=== PATIENT | female | born 1955 | race Asian ===

== ENCOUNTER → 2018-05-13 07:29 | Outpatient (CLI) | payer OTHER, SELFPAY ==
--- NOTE | 2018-05-13 | DI.MG.S_ITS ---
BILATERAL DIGITAL SCREENING MAMMOGRAM 3D/2D WITH CAD: 05/13/2018 CLINICAL: Routine screening. Comparison is made to exams dated: 02/08/2016 mammogram, 03/20/2017 mammogram, 12/28/2014 mammogram, and 12/25/2013 mammogram - [facility]. The tissue of both breasts is extremely dense, which lowers the sensitivity of mammography. Current study was also evaluated with a Computer Aided Detection (CAD) system. No significant masses, calcifications, or other findings are seen in either breast. There has been no significant interval change. IMPRESSION: NEGATIVE There is no mammographic evidence of malignancy. A 1 year screening mammogram is recommended. This exam was interpreted at Station ID: [id number]. NOTE: For mammograms, a report in lay terms will be sent to the patient. Approximately 15% of breast malignancies will not be visualized mammographically. In the management of a palpable breast mass, a negative mammogram must not discourage biopsy of a clinically suspicious lesion. Electronically Signed By: Andrea garrett/vanna:05/13/2018 12:44:17 letter sent: Normal Exam ACR BI-RADS Category 1: Negative [id number]
== END ==
PROVIDERS: PCP Family Medicine; Visit Provider Family Medicine
DX: Z12.31 Encounter for screening mammogram for malignant neoplasm of breast (principal)
CPT/HCPCS: 77063; 77067

== ENCOUNTER → 2019-09-20 11:33 | Outpatient (CLI) | payer OTHER, SELFPAY ==
--- NOTE | 2019-09-20 11:34 | DI.MG.S_ITS ---
BILATERAL DIGITAL SCREENING MAMMOGRAM 3D/2D WITH CAD: 09/20/2019 CLINICAL: Routine screening. Comparison is made to exams dated: 05/13/2018 mammogram, 03/20/2017 mammogram, and 02/08/2016 mammogram - [facility]. The tissue of both breasts is extremely dense, which lowers the sensitivity of mammography. Current study was also evaluated with a Computer Aided Detection (CAD) system. No significant masses, calcifications, or other findings are seen in either breast. There has been no significant interval change. IMPRESSION: NEGATIVE There is no mammographic evidence of malignancy. A 1 year screening mammogram is recommended. This exam was interpreted at Station ID: [id number]. NOTE: For mammograms, a report in lay terms will be sent to the patient. Approximately 15% of breast malignancies will not be visualized mammographically. In the management of a palpable breast mass, a negative mammogram must not discourage biopsy of a clinically suspicious lesion. Electronically Signed By: Jean kirk/vanna:09/22/2019 07:57:30 letter sent: Normal Exam ACR BI-RADS Category 1: Negative [id number]
== END ==
PROVIDERS: PCP Family Medicine; Referring Provider Family Medicine; Visit Provider Family Medicine
DX: Z12.31 Encounter for screening mammogram for malignant neoplasm of breast (principal)
CPT/HCPCS: 77063; 77067

== ENCOUNTER → 2020-06-09 09:25 | Outpatient (CLI) | payer OTHER, SELFPAY ==
--- NOTE | 2020-06-09 09:26 | DI.US.S_ITS ---
ULTRASOUND OF RIGHT BREAST: 06/09/2020 CLINICAL: Palpable right breast lump. Comparison is made to exams dated: 06/09/2020 mammogram, 09/20/2019 mammogram, 05/13/2018 mammogram, and 03/20/2017 mammogram - [facility]. Color flow and real-time ultrasound of the right breast were performed. Joshi scale images of the real-time examination were reviewed. There is a 0.9 cm x 1.3 cm x 1 cm round mass in the right breast at 3 o'clock anterior depth 2 cm from the nipple. This correlates as palpated and with mammography findings. Color flow imaging demonstrates that there is increased vascularity. IMPRESSION: SUSPICIOUS OF MALIGNANCY The 1.3 cm round mass in the right breast is suspicious of malignancy. An ultrasound guided biopsy is recommended. Findings and recommendations were discussed with the patient by Dr. Beau Cervantes at time of exam. This exam was interpreted at Station ID: [id number]. Electronically Signed By: Selene kincaid/:06/09/2020 13:58:16 letter sent: Biopsy Required Ultrasound BI-RADS: 4 Suspicious for malignancy
--- NOTE | 2020-06-09 09:26 | DI.MG.S_ITS ---
BILATERAL DIGITAL DIAGNOSTIC MAMMOGRAM 3D/2D: 06/09/2020 CLINICAL: Right breast lump. Comparison is made to exams dated: 09/20/2019 mammogram, 05/13/2018 mammogram, and 03/20/2017 mammogram - [facility]. The tissue of both breasts is heterogeneously dense. This may lower the sensitivity of mammography. There is a 1.2 cm irregular equal density asymmetry with an indistinct margin in the right breast at 4 o'clock middle depth. This is seen in additional views. This has increased in size and correlates as palpated. No other significant masses, calcifications, or other findings are seen in either breast. IMPRESSION: INCOMPLETE: NEEDS ADDITIONAL IMAGING EVALUATION The 1.2 cm increasing sized asymmetry in the right breast corresponds to the palpable abnormality but remains indeterminate. An ultrasound is recommended. This was performed immediately following this exam. This exam was interpreted at Station ID: [id number]. NOTE: For mammograms, a report in lay terms will be sent to the patient. Approximately 15% of breast malignancies will not be visualized mammographically. In the management of a palpable breast mass, a negative mammogram must not discourage biopsy of a clinically suspicious lesion. Electronically Signed By: Selene kincaid/:06/09/2020 10:11:37 ACR BI-RADS Category 0: Incomplete 3340F
== END ==
PROVIDERS: PCP Family Medicine; Referring Provider Family Medicine; Visit Provider Family Medicine
DX: N63.10 Unspecified lump in the right breast, unspecified quadrant (principal)
CPT/HCPCS: 76642; 77066; G0279

== ENCOUNTER → 2020-06-23 13:06 | Outpatient (CLI) | payer OTHER, SELFPAY ==
--- NOTE | 2020-06-23 | PATH_ITS ---
[facility] Accession Number: [id number] . 01 Material submitted: . breast - RIGHT BREAST MASS 3:00 2CMFN . 01 Diagnosis: Right Breast, Mass, 3 o'clock, 2 cm From Nipple, Image-Guided Core Biopsy: Invasive ductal carcinoma with mucinous features, intermediate grade. - [place] Score: 6 out of 9 possible (histologic=3, nuclear=2, mitotic index=1). - In Situ Carcinoma: Present, ductal type with intermediate grade nuclei and solid/cribriform architecture. - Lymphovascular Invasion: Not identified. - Greatest Linear Dimension of Invasive Carcinoma: 1.0 cm, as measured from the glass slide. - Microcalcifications: Identified within tumor proper. - Predictive Markers: Estrogen and progesterone receptors and HER2 by immunohistochemistry pending (reported as an addendum). [facility] 06/25/2020 1540 Local . 01 Comment: The results of this case are verbally provided by Dr. Wilson to Nurse Marianne, in Dr. Valle's office, on 06/25/2020 at 3:30 PM. . 01 Electronically signed: . Suzy Wilson MD, Pathologist NPI- [id number] . 01 Gross description: . Received one formalin-filled container, labeled with the patient's name and labeled R breast 3 o'clock 2 cm FN. The specimen is received with a plastic filter in container, sample loose in container and consists of multiple yellow-jj to jj-lópez, cylindrical-shaped portions of tissue that range in size from 0.3 x 0.2 x 0.2 cm to 1.0 x 0.2 x 0.2 cm. The specimen is entirely submitted in one cassette. Possible collection date and time per requisition: 06/23/20 at 1452. Total fixation time: Approximately 32 hours. (DC:[id number]) /[facility] 06/25/2020 0230 Local . 01 Pathologist provided ICD-10: C50.911 . 01 CPT . 894182, [id number] Performed at: 01 [facility] [address], [place], [place] [id number] MD Miguel Angel Regalado MD Phone: [phone]
--- NOTE | 2020-06-23 | DI.MG.S_ITS ---
UNILATERAL RIGHT DIGITAL DIAGNOSTIC MAMMOGRAM POST-NEEDLE BIOPSY: 06/23/2020 CLINICAL: Right breast mass. Comparison is made to exams dated: 06/09/2020 mammogram, 09/20/2019 mammogram, and 05/13/2018 mammogram - [facility]. The tissue of right breast is heterogeneously dense. This may lower the sensitivity of mammography. The post biopsy marker, Vision marker, is in expected position. IMPRESSION: POST PROCEDURE MAMMOGRAM FOR MARKER PLACEMENT Appropriate Vision Marker positioning at margin of the lesion biopsied under US guidance today. This exam was interpreted at Station ID: [id number]. NOTE: For mammograms, a report in lay terms will be sent to the patient. Approximately 15% of breast malignancies will not be visualized mammographically. In the management of a palpable breast mass, a negative mammogram must not discourage biopsy of a clinically suspicious lesion. Electronically Signed By: Erasto Larson M.D. sdh/:06/23/2020 16:06:29 ACR BI-RADS Category Post-procedure mammogram for marker placement
--- NOTE | 2020-06-23 13:08 | DI.US.S_ITS ---
ULTRASOUND GUIDED BIOPSY RIGHT BREAST USING VACUUM DEVICE WITH MARKING DEVICE INSERTED AND POST DIGITAL MAMMOGRAPHIC AND ULTRASOUND IMAGIN06/23/2020 CLINICAL: Right breast mass. PATIENT CONSENT: Risks (minor bleeding, infection, vasovagal reaction and repeat procedure), benefits and alternatives were explained to the patient and written informed consent was obtained. Correlation is made to exams dated: 06/23/2020 mammogram, 06/09/2020 ultrasound, 06/09/2020 mammogram, 09/20/2019 mammogram, 05/13/2018 mammogram, and 03/20/2017 mammogram - [facility]. An ultrasound guided biopsy using real-time ultrasound was performed for the concerning circumscribed lobulated solid mass located in the right breast at 4 o'clock anterior depth. This was described on the previous mammography and ultrasound reports. The skin was prepped in the usual manner. Local anesthetic was administered to the access site. A skin debi was made in the breast. The abnormality was approached from the lateral aspect. A 13 gauge biopsy needle was placed adjacent to the abnormality under ultrasound guidance. Once the needle was documented to be in the correct location, four specimens were obtained using the Mammotome biopsy system. The patient received additional local anesthetic during the procedure. A mammo clip was inserted into the biopsy cavity. A skin closure strip and a sterile dressing were applied to the access site. Post procedure digital mammographic and ultrasound imaging demonstrates the location device at the targeted area and partial removal of the abnormality. The specimens were sent to the laboratory for pathological analysis. IMPRESSION: ULTRASOUND GUIDED BIOPSY MALIGNANT Ultrasound guided biopsy of the solid mass in the right breast at 4 o'clock anterior depth was successful. 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 Insitu carcinoma is also present. Pathology results are concordant with imaging findings. A surgical/oncologic consultation is recommended. Results and recommendations will be communicated to the ordering provider's office. This exam was interpreted at Station ID: [id number]. codi Benson M.D., M.D./:06/29/2020 09:00:42
--- NOTE | 2020-07-05 11:26 | ONC.MSW ---
Description: New Referral Navigation T/C Reason for Referral: Invasive Ductal Carcinoma-Right Breast Activity: Called pt to confirm that we've received her referral; assessed coping, acuity, medical status, and immediate needs. Briefly discussed the role of navigation and the ongoing availability for assistance, support, and resource referrals as needed. Pt has already had biopsy, pathology and ultrasound in EMR. She is scheduled for her breast MRI on 07/06, [facility] on 07/07. ADMIN ASST answered many questions that pt had, as well as offered supportive counseling and reassurance as she expessed high anxiety and worry in processing this new dx. No further immediate needs identified at this time, ADMIN ASST provided my direct contact info should pt have any further questions or need for support prior to her appt. time. Confirmed her consult time for 07/13 at 3:00pm, 2:40pm check-in time.
== END ==
PROVIDERS: PCP Family Medicine; Referring Provider Family Medicine; Visit Provider Family Medicine
DX: C50.311 Malignant neoplasm of lower-inner quadrant of right female breast (principal)
CPT/HCPCS: 19083; 77065

== ENCOUNTER → 2020-07-06 12:16 | Outpatient (CLI) | payer OTHER, SELFPAY ==
--- NOTE | 2020-07-06 12:17 | DI.MRI.S_ITS ---
BREAST MRI OF BOTH BREASTS: 07/06/2020 CLINICAL: Right breast DCIS. Comparison is made to exams dated: 06/23/2020 ultrasound biopsy, 06/23/2020 mammogram, 06/09/2020 ultrasound, and 06/09/2020 mammogram - [facility]. Informed consent was obtained from the patient. Axial T1 images were obtained. Bilateral background breast enhancement is minimal. TECHNIQUE: The patient was placed prone in a dedicated breast imaging coil. Precontrast axial STIR and 3D FLASH without fat saturation sequences were obtained. Both before and after bolus injection of contrast, sequential 1-minute axial 3D FLASH with fat saturation sequences for 3 time points, with subtraction images and maximum intensity projections (MIP's) generated. Delayed sagittal FLASH images with fat saturation were also obtained. Computer-aided detection, including computer algorithm analysis of MRI image data for lesion detection and characterization, pharmacokinetic analysis, with further physician review for interpretation, was performed. COMPARISON: [facility], BILATERAL SCREENING MAMMOGRAM, 02/08/2016, 10:27. [facility], BILATERAL SCREENING MAMMOGRAM, 03/20/2017, 9:28. [facility], MM SCREENING MAMMO BI, 05/13/2018, 8:00. [facility], MM SCREENING MAMMO BI, 09/20/2019, 11:40. [facility], US BREAST RT LIMITED, 06/09/2020, 9:55. [facility], MM DIAGNOSTIC MAMMO BI, 06/09/2020, 9:55. [facility], US BX BREAST PERC W VAC DEVICE, 06/23/2020, 13:54. FINDINGS: Image quality: Excellent. There is mild background parenchymal enhancement. There is extremely dense fibroglandular tissue in the bilateral breast. Right breast: There is an irregular, enhancing mass in the right breast inner aspect at approximately the 4 o'clock axis middle depth, proximally 3.0 cm from the nipple measuring approximately 1.4 cm in AP dimension (axial image 52, series 12), 1.3 cm in transverse dimension (axial image 52, series 12) and approximately 1.3 cm in craniocaudal dimension (sagittal series 78, series 18). There is a small focus of internal susceptibility artifact compatible with biopsy marker. On ultrasound, this mass measured approximately 0.9 x 1.3 x 1.0 cm. This mass is compatible with biopsy-proven malignancy. Additionally, there is mild surrounding non-mass enhancement extending medially and anteriorly from this mass for a total area of approximately 3.6 cm in AP dimension (sagittal series 67, series 18), 2.0 cm in craniocaudal dimension (sagittal series 70, series 18) and approximately 1.9 cm in transverse dimension (axial image 50, series 14). There is associated delayed phase washout enhancement kinetics within the mass. There is delayed phase progressive enhancement kinetics involving the area of non-mass enhancement surrounding the biopsied mass. No suspicious skin or nipple abnormalities. There is linear T1 hyperintensity extending a short distance from the nipple without associated enhancement. This is likely related to hemorrhagic/proteinaceous products within a duct. No other suspicious mass lesions identified. No axillary or internal mammary chain adenopathy. Left breast: No suspicious mass, architectural distortion, or non-mass enhancement. No skin or nipple abnormalities. No axillary or internal mammary chain adenopathy. Miscellaneous: Visualized portions of the upper abdomen and chest appear unremarkable. IMPRESSION: KNOWN BIOPSY PROVEN MALIGNANCY 1. Irregular, enhancing 4 o'clock mass in the middle depth of the right breast measuring 1.4 x 1.3 x 1.3 cm compatible with biopsy-proven malignancy. This measures larger than sonographic measurements of approximately 0.9 x 1.3 x 1.0 cm. There is mild non-mass enhancement extending from this mass medially and anteriorly toward the nipple measuring approximately 3.6 x 2.0 x 1.9 cm. This may be in part due to post biopsy reactive changes. However, this may also represent component of ductal carcinoma in situ as noted on pathology report. No mammographic abnormalities identified to correlate with this area of non-mass enhancement. No sonographic abnormalities were seen during diagnostic evaluation of biopsied mass. Area and size of this non-mass enhancement was in close proximity to the biopsy proven mass and no other sonographic abnormalities are identified. This finding is likely mammographically and sonographically occult. Consider further evaluation with MRI guided biopsy of the most anterior and posterior margins of the non-mass enhancement to evaluate for possible presence and extent of in-situ component. 2. No evidence for right-sided axillary or internal mammary chain adenopathy. 3. Left breast without MRI evidence for malignancy. COMMENT: The imaging literature indicates that a negative contrast breast MRI examination has a high sensitivity and a moderate specificity for detecting and excluding invasive carcinomas to a detection threshold of 3-5 mm; nonetheless, appropriate clinical and mammographic follow-up are recommended. MRI is not sensitive for detecting DCIS (ductal carcinoma in situ) and may not detect large invasive neoplasms that show only minimal enhancement such as mucinous carcinoma. If there are suspicious calcifications or clinically worrisome palpable masses, then biopsy should still be considered. Invasive neoplasms can be hidden by co-existent and benign enhancement caused by mastitis, hormone therapy effects, radiation therapy, , and recent biopsy or surgery. False positive examinations can occur in a number of circumstances, including breasts that have recently been subject to invasive procedures and those that contain atypical ductal hyperplasia, hormonally stimulated glandular tissue, fat necrosis, or radial scars. This exam was interpreted at Station ID: [id number]. Electronically Signed By: Jean Heck M.D. aty/:07/06/2020 17:52:13 ACR BI-RADS Category 6: Known biopsy proven malignancy 3346F
== END ==
PROVIDERS: PCP Family Medicine; Referring Provider Family Medicine; Visit Provider Family Medicine
DX: D05.11 Intraductal carcinoma in situ of right breast (principal)
CPT/HCPCS: 77049

== ENCOUNTER → 2020-07-26 09:45 | Outpatient (CLI) | payer OTHER, SELFPAY ==
[2020-07-26 10:57] LABS: COVID19 -Nasal RAPID Negative (Negative)
== END ==
PROVIDERS: PCP Family Medicine; Visit Provider Surgery
DX: Z20.822 Contact with and (suspected) exposure to COVID-19 (principal)
CPT/HCPCS: 87635; C9803

== ENCOUNTER 2020-07-27 06:57 | Observation (INO) | payer OTHER, SELFPAY ==
[2020-07-22 13:20] VITALS: BMI 20.1
[2020-07-27] VITALS (18 sets, daily range): BP systolic 74–159; BP diastolic 46–83; PULSE 57–69; RESP 7–16; TEMP 35.8–36.7; O2SAT 97–100; BMI 20.1
--- NOTE | 2020-07-27 | PATH_ITS ---
[facility] Accession Number: [id number] . 01 Material submitted: . PART A: breast - RIGHT BREAST PART B: lymph node - SENTINEL LYMPH NODE . 02 Diagnosis: A. Right Breast, Mastectomy: Invasive ductal carcinoma with mucinous features. Please see summary cancer data below. . B. [place] Lymph Node, Excision: One sentinel lymph node negative for metastatic carcinoma. Please see cancer summary below. . SURGICAL PATHOLOGY CANCER CASE SUMMARY . Procedure: Total mastectomy. Specimen laterality: Right. Tumor site: 3 o'clock. Tumor size; 1.5 cm. Histologic type: Invasive carcinoma of no special type (ductal) with mucinous features. Histologic grade: Glandular/tubular differentiation; Score 3. Nuclear pleomorphism: Score 2. Mitotic rate: Score 1. Overall grade: Grade 2. Tumor focality: Single focus of invasive carcinoma. Ductal carcinoma in situ: Present, positive for extensive intraductal comonent (EIC). Size of DCIS: Estimated size of DCIS is at least 24 mm. Architectural patterns: Cribriform, solid. Nuclear grade: Grade 2 (intermediate). Necrosis: Not identified. Lobular carcinoma in situ: Not identified. Tumor extension: Skin: Skin is present and uninvolved. Nipple: DCIS does not involve the nipple epidermis. Skeletal muscle: No skeletal muscle is present. . Invasive carcinoma margins; Uninvolved by invasive carcinoma. Distance from closest margin: 5 mm, posterior. Distance from other margins: Greater than 10 mm from anterior-inferior and anterior-superior margins. DCIS margins: Uninvolved by DCIS. Distance from closest margin: 1 mm, posterior. Distance from other margins: Anterior-inferior margin: 4 mm Anterior-superior margin: greater than 10 mm. . Regional lymph nodes: Uninvolved by tumor cells. Total number of lymph nodes examined: 1. Number of sentinel nodes examined: 1. . Treatment effect in the breast: No known presurgical therapy. Treatment effect in the lymph nodes: Not applicable. Lymphovascular invasion: Focaly suspicious for lymphovascular invasion (block A7). Dermal lymphovascular invasion: Not identified. . Pathologic stage classification: Primary tumor: pT1c. Regional lymph nodes: pN0(sn). . Additional pathologic findings: Biopsy site changes. Ancillary studies: Breast biomarker testing performed on previous biopsy: [id number]. Estrogen receptor: Positive, greater than 90%, strong. Progesterone receptor: Positive, greater than 90%, strong. HER2 (by IHC): Equivocal (Score 2+). HER2 (by in situ hybridization): Negative, not amplified. . Microcalcifications: Present in DCIS and in nonneoplastic tissue. . Please see comment. MRV 08/03/2020 1526 Local . 02 Comment: As part of routine software quality assurance engineer, Dr. Armstrong also reviewed block A7 and agrees with the interpretation of suspicious for lymphovascular invasion. . 02 Electronically signed: . Juliet Martinez MD, Pathologist NPI- [id number] . 01 Gross description: . A. Specimen A is received in formalin labeled right breast. Specimen: Right simple mastectomy. Weight: 165 grams. Measurement: 13.0 cm from medial to lateral x 11.0 cm from superior to inferior x 4.5 cm from anterior to posterior. Skin Ellipse: Present measuring 9.1 x 4.6 cm, lópez with blue dye present. Nipple/Areola: 2.0 x 1.6 x 1.2 cm everted nipple with a 3.5 x 3.0 cm areolar complex. Axillary Tail: Absent. Margins: The specimen is oriented with a short suture designated superior and a long suture designated lateral. The specimen is inked as follows: anterosuperior blue, anteroinferior green, posterior black, and area where the nipple was amputated by the prosector yellow. Slices: The specimen is serially sectioned from lateral to medial into fourteen slices. Lesion: There is a 1.5 x 1.4 x 1.0 cm firm lópez-white lesion located within slices 12-13 with a silver metallic balloon-shaped biopsy marker in slice 13. Distance to Margins: 0.4 cm from the posterior margin, 1.0 cm from the anteroinferior margin, 2.0 cm from the anterosuperior margin, 2.0 cm from the nearest skin margin and greater than 2.0 cm from the nipple. Other: The uninvolved breast parenchyma is composed of approximately 50 percent lópez-white fibrous tissue and 50 percent lópez-yellow adipose tissue. No additional masses or lesions are identified. . Hog Stomach Preparer sections are submitted. . A1-A2 - Nipple, serially sectioned. A3 - Slice 12, mass in relation to anteroinferior margin. A4-A5 - Slice 12, mass in relation to posterior margin. A6 - Slice 12, closest skin and anterosuperior margin. A7-A8 - Slice 13, mass in relation to posterior margin, to include biopsy site. A9 - Slice 13, mass in relation to anteroinferior margin (mass was entirely submitted). A10 - Slice 14, medial to mass, internet sales representative perpendicular section. A11 - Slice 11, lateral to mass. A12 - Nipple base. A13-A14 - Hog Stomach Preparer upper outer quadrant. A15-A16 - Hog Stomach Preparer lower outer quadrant. A17-A18 - Hog Stomach Preparer upper inner quadrant. . Formalin fixation time: 84 hours. . B. Specimen B is received in formalin labeled sentinel lymph node and consists of a 1.5 x 1.4 x 1.0 cm lymph node, which is bisected and entirely submitted in cassette B1. (EA:[id number]) /[facility] 07/30/2020 1744 Local . 02 Microscopic: . A. A small focus suspicious for lymphovascular invasion is present in block A7. Immunohistochemical stains are performed to characterize cells of interest. All control stains showed appropriate reactivity. . D2-40, p63 and myosin stains were performed; however, the area of interest is not present in the deeper levels used for staining. . Interpretation: The small focus is most consistent with the interpretation of suspicious for lymphovascular invasion, but cannot be confirmed by IHCs due to lack of material in the deeper levels. . B. An immunohistochemical stain was performed on block B1 in order to evaluate for isolated tumor cells. The control stain showed appropriate reactivity. . Results: RAMÓN: Negative. . Interpretation: No evidence of metastatic tumor cells by immunohistochemistry. . * This test was developed and its performance characteristics determined by [employer]. It has not been cleared or approved by the U.S. Food and Drug Administration. The FDA has determined that such clearance or approval is not necessary. This test is used for clinical purposes. It should not be regarded as investigational or for research. . 02 Pathologist provided ICD-10: C50.911, Z17.0 . 02 CPT . 303181, 787915, F00232, [id number] Performed at: 01 [facility] [address] [id number] MD Miguel Angel Regalado MD Phone: [phone] Performed at: 02 [facility] [address] [place] [id number] MD Juliet Martinez MD Phone: [phone]
--- NOTE | 2020-07-27 07:45 | DI.NM.S_ITS ---
PROCEDURE: NM SENTINEL NODE W IMAGING RADIOPHARMACEUTICAL: 0.5-1.0 mCi Millipore filtered Tc-99m sulfur colloid. INDICATIONS: breast cancer COMPARISON: [facility], US, US BX BREAST PERC W VAC DEVICE, 06/23/2020, 13:54. TECHNIQUE: The area around the nipple was prepped and draped in a sterile fashion. Tc-99m sulfur colloid was injected intra-dermally in the outer edge of the areola in the right breast. Images were obtained subsequently. A body contour outline was obtained. FINDINGS: There is 1 lymph node in the ipsilateral axilla, which is marked on the skin and the images for referring physician. IMPRESSION: Administration of radiotracer into the right breast periareolar region for intra-operative sentinel lymph node localization. A single identified right axillary note is seen. Dictated by: Erasto Larson M.D. on 07/27/2020 at 10:59 Approved by: Erasto Larson M.D. on 07/27/2020 at 11:00
--- NOTE | 2020-07-27 09:50 | PM.PREOP ---
Pre-operative Note Interval Note History & Physical reviewed/Exam performed by Physician: Yes Changes to H&P: No
[2020-07-27] MEDS: CEFAZOLIN 1 GM VIAL 2 GM IV (10:31)
--- NOTE | 2020-07-27 10:40 | SUR.OPER ---
Supine on padded OR bed, head on pillow, arms secured on padded arm boards at <90 degrees abduction, legs uncrossed, safety belt at thigh, tape over blanket over lower legs.
[2020-07-27] MEDS: BUPIVACAINE 0.25% (PF) VIAL 30 ML INJ (10:46)
[2020-07-27] MEDS: LACTATED RINGERS 1,000 ML 42 ML IV (11:17)
[2020-07-27] MEDS: METHYLENE BLUE 50 MG/10 ML VIAL INJ (11:19)
--- NOTE | 2020-07-27 12:12 | PM.OP.1 ---
Operative Date/Time/Diagnoses Date of procedure: 07/27/20 Time of procedure: 12:12 Pre-op diagnosis: Right breast cancer Post-op diagnosis: same Procedure & Clinicians Procedure: Right Mastectomy with sentinel lymph node biopsy Same procedure as scheduled: Yes Indications: Invasive right breast cancer clinically negative axilla Surgeon: Rex Terry Anesthesia Type: General Operative Notes Findings: [place] lymph node 10 sec count 447 node confirmed by the presence of methylene blue Specimen(s): other (Right breast, sentinel lymph node) Estimated Blood Loss (mL): 30 Procedure in detail: Patient was brought to the operating room placed supine on the table. Bilateral lower extremity compression devices were applied. She received 2 g of Ancef prior to skin incision. She was intubated with an endotracheal tube. She was then prepped and draped in sterile fashion. Time-out was performed. 2 mL of methylene blue diluted with 6 ml of normal saline injected into the periareolar tissue and massaged it into the right breast for 5 minutes. An elliptical incision around the nipple areola complex was made with the knife. The subcutaneous tissue was divided with electrocautery. Skin flaps were raised to separate the breast tissue from the skin along the subdermal plexus. The dissection was extended superior to the clavicle, medial to the sternum, inferior the the inframamary fold and lateral to the anterior border of the latisimus dorsi. Next the breast tissue was from the underlying pectoralis fascia. The breast was passed off the field marked short stitch superior long stitch lateral. Hemostasis was achieved. Using a hand held gamma probe I localized the area of increased radioactivity. The right axillary tissue was carefully dissected towards the area of maximal radioactivity via the mastectomy incision. A sentinel lymph node was identified its identity confirmed by its blue appearance, it was ligated with 3-0 silk and transected sharply. The node produced a 10 sec count of 447. Gamma probe was returned to the field there was no significant background activity. The axilla was inspected for hemostasis. The wound was copiously irrigated and homeostasis was ensured. The mastectomy was closed with 3 0 Vicryl for the subcutaneous tissue and the skin was closed with 4 0 Monocryl followed by the application of Dermabond and steri strips. Patient tolerated procedure well she emerged from anesthesia was extubated and transferred to recovery room in stable condition. Complications: none Post-operative Condition: stable Disposition: same day surgery
--- NOTE | 2020-07-27 12:30 | SUR.PHASEI ---
Pt arrived needed chin lift till 1220 for patent airway. Medicated for pain by Dr. Smith.
[2020-07-27] MEDS: OXYCODONE IR 5 MG TABLET PO (12:55)
--- NOTE | 2020-07-27 13:02 | SUR.PHASEI ---
Pt slow to wake. Pt decided she would like to stay overnight. Dr. Terry informed transfer orders written, report attempted, awaiting call back from RN. R chest dressing c/d/i. pain 05/22 medicated with oxycodone once applesauce was tolerated.
--- NOTE | 2020-07-27 14:54 | PC.NURSE ---
Received from pacu 65 y/o f s/p rt mastectomy. sleepy, minimal pain at present. Incision is steri stripped and covered with loose gauze. Has binder over top of dressing and then has an ice pack on top of that. No drainage from incision. Just taking bites to eat, not hungry. Scd's placed and instructed in call light use. Received oxy in pacu and reports she is comfortable for now. Pain minimal.
--- NOTE | 2020-07-27 15:02 | SUR.PHASEI ---
Late entry: Pt brought up to acute care, left in stable condition with MAYA Vines.
[2020-07-27] MEDS: SODIUM CHLORIDE 0.9% 1,000 ML 100 ML IV ×2 (15:50→21:53)
[2020-07-27] MEDS: ONDANSETRON 4 MG/2 ML INJ IV (15:57)
[2020-07-27] MEDS: SCOPOLAMINE 1 PATCH TOP (16:07)
[2020-07-27] MEDS: SODIUM CHLORIDE 0.9% 500 ML 1000 ML IV (16:49)
[2020-07-27 17:01] LABS: Hematocrit 31.1 % (36-46)
--- NOTE | 2020-07-27 17:58 | PC.NURSE ---
Addendum entered by Kendra Thornton R.N. 07/28/20 10:07: Patient is going to be discharged home around 1100am. Incision to r.breast wnl, steri stripped well. Patient has some swelling to area, she denies pain. Napping now. Addendum entered by Natacha Hennessy R.N. 07/27/20 18:17: dressing intact, no shadow drainage, pt wearing breast binder. this nurse agrees with [employer] and development director. Original Note: Pt A&OX4. 100% RA. pt ambulated to the bathroom, pt felt dizzy, BP 74/46, HR 56, 87/46 HR 55. pt's vitals started to go up when she was in bed, pt in supine position. Dr. Terry was notified. VTO for NS @100, zofran and sco patch for nausea. pt's BP dropped again to 84/54 notified , VTO for 500cc NS bolus and stat HCT. notified MD about HCT 31.3 result and current BP 93/52 MAP 67 HR65. per provider, call if MAP is in low 60's. VTO for reglan 10mg q6h, prn.
[2020-07-27] MEDS: METOCLOPRAMIDE 10 MG/2 ML INJ IV (20:13)
[2020-07-28 00:30] VITALS: BP 110/48; PULSE 63; RESP 18; TEMP 36.7; O2SAT 100
[2020-07-28 05:36] VITALS: BP 104/47; PULSE 64; RESP 18; TEMP 36.7; O2SAT 100
[2020-07-28] MEDS: SODIUM CHLORIDE 0.9% 1,000 ML 100 ML IV (08:09)
[2020-07-28 08:10] VITALS: BP 114/46; PULSE 67; RESP 16; TEMP 36.7; O2SAT 98
--- NOTE | 2020-07-28 11:07 | PC.NURSE ---
Patient has an incision to r.chest where breast taken off. Area is covered with steri strips and intact. She is wearing a breast binder for comfort and protection. Up to get dressed as patient is going to be discharged home. IV taken out and she has denied pain this morning. Paperwork just gone over with patient and she has been taken out to the car with her friend, will belt picker pain medication at the pharmacy when ready.
--- NOTE | 2020-07-28 11:08 | CM.DANOTE ---
Patient is a 65 year old female who was admitted on 07/27/20 for Mastectomy. Pt has [employer] INSURANCE and her PCP is Dr. Taylor Valle. EMR was reviewed. Per Surgeon, pt with normal mammogram last year but 6-8 months later found a lump that was biopsied and returned malignant. Pt has consult with Dr. Hamilton Oncologist and Dr. Terry Surgeon and decision made for Right Mastectomy with lymph node biopsy and completed her surgery yesterday. SW met bedside with pt and explained role and she confirms she lives in a condo in [place] and works at [employer] [facility] and has no local family. Pt states most of her family is still in the [facility] and also [place] and unable to fly in for assist but pt states her boss and friend are big supports to her and are available for assist if needed and plan to transport her home. Pt denies any DPOA at this time and preference is home today if stable. Pt states she feels better today than yesterday and is eager to get settled in at home for healing. Pt denies any needs at this time. Per Surgeon, pt now medically stable to d/c home today with outpt follow up. Per RN, pt has plans for friend to transport around 1100 today, no concerns at this time. Plan: Patient to d/c home today via friend POV and outpt follow up with Surgeon and likely Oncologist. No SW needs at this time. KATJA Kat Discharge Planning/Care Management Advanced directive, confirm from FAMILY Start: 07/27/20 13:43 Freq: Q24H Status: Active Protocol: Document 07/27/20 14:10 CEW (Rec: 07/27/20 14:10 CEW [id number]) Advance Directive, confirm on record Time 14:10 Person contacted patient Copy received No CM Discharge Assessment Start: 07/28/20 11:07 Freq: Status: Active Protocol: Document 07/28/20 11:07 BF (Rec: 07/28/20 11:08 [id number]) Discharge Planning Assessment Assigned Cashier Assistant KATJA Cotton DPOA/Assigned Designee Name none Advance Directives? No Advance Directives on File No History Provided By Patient,Medical Record Has Patient been admitted in last 30 No days? Prior Living Arrangements Apartment/Condo Household Members none Type of transporation used prior to Drives own vehicle admit Independent with ADL's Yes Is patient alert and oriented? Yes Caregiver for Another No Barriers to Discharge No Discharge Plan Home Transportation Arrangement friend Jenise to provide transport home Referrals Initiated None needed Whiteboard Updated in Patient Room with Yes name and ext. # of Cashier Assistant Review Status In Process Please Provide Date Initial DC 07/28/20 Assessment Was Performed Next Review Type Continued Stay Review Pre-Anesthesia Assessment Start: 07/22/20 13:20 Freq: Status: Complete Protocol: Document 07/22/20 13:20 CAB (Rec: 07/22/20 13:33 CAB [id number]) Pre-Anesthesia Assessment Patient Information Reviewed Via Chart Review Comment COVID screen @ 07/26/20? Primary Care Provider Taylor Valle Seen Specialist in Last 12 Months Yes Specialist Seen General surgeon,Oncologist Primary Language Qatari Flask Cleaner Required No Height 157.48 cm Weight 49.895 kg Body Mass Index (BMI) 20.1 Barriers to Learning None Anesthesia Review Requested No Manager Sign No Smoking Status Never smoker Pain Present Pain Reported Patient is completely paralyzed or No completely immobile Mental Status Oriented to own ability Currently Taking a Beta Cam No Anti-Coagulant Therapy No Has a Interior Painter No Cardiac Testing No Hx Pacemaker/ICD No Pacemaker Rep Required? No Urinary Catheter Present No Hx Urinary Self Catheterization No Diabetes No Patient No Lactating No Marital Status Unknown Lives With none Patient Discharge Plan Description Return Home
== END 2020-07-28 11:20 | disposition home or self-care (01) ==
LOC: AC 11:43
PROVIDERS: Surgery; Admitting Provider Surgery; PCP Family Medicine; Referring Provider Surgery; Visit Provider Surgery
PROC: 0HTT0ZZ Resection of Right Breast, Open Approach (ICD-10-PCS; CPT 19303; principal; 2020-07-27 10:15)
DX: C50.911 Malignant neoplasm of unspecified site of right female breast (principal); Z17.0 Estrogen receptor positive status [ER+]; F41.9 Anxiety disorder, unspecified
CPT/HCPCS: 19303; 38500; 78195; 82962; 85014; A9541; G0378; J0690; J1100; J1885; J2250; J2405; J2704; J2765; J3010; Q9968

== ENCOUNTER → 2020-10-20 10:39 | Outpatient (CLI) | payer OTHER, SELFPAY ==
[2020-07-27 13:33] VITALS: BMI 20.1
== END ==
PROVIDERS: PCP Family Medicine; Referring Provider Internal Medicine Hematology & Oncology; Visit Provider Internal Medicine Hematology & Oncology
DX: C50.911 Malignant neoplasm of unspecified site of right female breast (principal); M85.832 Other specified disorders of bone density and structure, left forearm; Z78.0 Asymptomatic menopausal state
CPT/HCPCS: 77080; 77081

== ENCOUNTER → 2021-01-17 08:45 | Outpatient (CLI) | payer MEDICARE, OTHER, SELFPAY ==
[2020-07-27 13:33] VITALS: BMI 20.1
[2021-01-17 11:38] LABS: COVID19 -Nasal RAPID Negative (Negative)
== END ==
PROVIDERS: PCP Family Medicine; Visit Provider Nurse Practitioner Family
DX: Z20.822 Contact with and (suspected) exposure to COVID-19 (principal)
CPT/HCPCS: 87635

== ENCOUNTER 2021-01-18 09:21 | Day surgery (SDC) | payer MEDICARE, OTHER, SELFPAY ==
[2020-07-27 13:33] VITALS: BMI 20.1
[2021-01-18 10:13] VITALS: BP 121/76; PULSE 64; RESP 15; TEMP 36.2; O2SAT 100; BMI 21.2
[2021-01-18] MEDS: CATARACT EYE COMPOUND (10 DROPS/SYRINGE) 3 DROPS EYE-OP (10:57)
[2021-01-18] MEDS: PROPARACAINE 0.5% OPHTH SOL 2 DROPS EYE-OP (10:57)
--- NOTE | 2021-01-18 11:35 | PM.PREOP ---
Pre-operative Note Interval Note History & Physical reviewed/Exam performed by Physician: Yes Changes to H&P: No
--- NOTE | 2021-01-18 11:35 | PM.OP.1 ---
Operative Date/Time/Diagnoses Pre-op diagnosis: Nuclear cataract right eye Procedure & Clinicians Procedure: Cataract Surgery Same procedure as scheduled: Yes Surgeon: Chicho Fontana Anesthesia Type: MAC +/- and Sedation Operative Notes Procedure in detail: Patient brought to the operating suite. Tetracaine drops placed in the right eye. Patient was prepped and draped in sterile manner. Wire lid speculum was placed in the eye. Betadine drops were placed on the eye. This was irrigated. Lidocaine jelly was placed on the eye. A paracentesis port was created with a side-port blade. 0.1 mL 1% preservative free lidocaine was injected into the anterior chamber. The anterior chamber was deepened with viscoelastic. 2.6 mm keratome was used to create a temporal clear corneal incision. Cystotome and Utrata forceps were used to create continuous tear capsulorrhexis. Balanced salt solution was used to hydro dissect the nucleus. The phacoemulsification handpiece was inserted and the nucleus was removed using the stop and chop technique. The irrigation aspiration handpiece was inserted and the remaining cortex was removed. Anterior chamber was deepened with viscoelastic. An Nelson DIB00 intraocular lens with a power of 25.0 was injected into the capsular bag. Irrigation aspiration handpiece was inserted and the remaining viscoelastic was removed. Incision was hydrated with balanced salt solution and found to be leak free with pressure with Weck-Micheline sponges. 0.1 mL Vigamox injected anterior chamber. 0.3 mL Kenalog 10 mg was injected subconjunctivally. Lid speculum was removed. The patient left the operating room in excellent condition. Complications: none Post-operative Condition: stable Disposition: same day surgery
== END 2021-01-18 12:30 | disposition home or self-care (01) ==
PROVIDERS: PCP Family Medicine; Referring Provider Ophthalmology; Visit Provider Ophthalmology
PROC: (CPT 66984; principal; 2021-01-18 11:15)
DX: H25.11 Age-related nuclear cataract, right eye (principal); F32.9 Major depressive disorder, single episode, unspecified; K21.9 Gastro-esophageal reflux disease without esophagitis
CPT/HCPCS: 66984; J0171; J2250; J3301

== ENCOUNTER → 2021-01-24 08:22 | Outpatient (CLI) | payer MEDICARE, OTHER, SELFPAY ==
[2020-07-27 13:33] VITALS: BMI 20.1
[2021-01-24 12:33] LABS: COVID19 -Nasal RAPID Negative (Negative)
== END ==
PROVIDERS: PCP Family Medicine; Visit Provider Nurse Practitioner Family
DX: Z20.822 Contact with and (suspected) exposure to COVID-19 (principal)
CPT/HCPCS: 87635

== ENCOUNTER 2021-01-25 06:49 | Day surgery (SDC) | payer MEDICARE, OTHER, SELFPAY ==
[2020-07-27 13:33] VITALS: BMI 20.1
[2021-01-25] MEDS: PROPARACAINE 0.5% OPHTH SOL 2 DROPS EYE-OP (07:00)
[2021-01-25] MEDS: CATARACT EYE COMPOUND (10 DROPS/SYRINGE) 3 DROPS EYE-OP (07:00)
[2021-01-25 07:36] VITALS: BP 128/78; PULSE 64; RESP 18; TEMP 36.8; O2SAT 100; BMI 21.2
--- NOTE | 2021-01-25 08:15 | SUR.PREOP ---
pre-op drops given in left eye 0700, 0705, 0710.
--- NOTE | 2021-01-25 08:33 | PM.PREOP ---
Pre-operative Note Interval Note History & Physical reviewed/Exam performed by Physician: Yes Changes to H&P: No
--- NOTE | 2021-01-25 08:33 | PM.OP.1 ---
Operative Date/Time/Diagnoses Pre-op diagnosis: Nuclear Cataract Left eye Post-op diagnosis: same Procedure & Clinicians Same procedure as scheduled: Yes Surgeon: Chicho Fontana Anesthesia Type: MAC +/- and Sedation Operative Notes Procedure in detail: Patient brought to the operating suite. Tetracaine drops placed in the left eye. Patient was prepped and draped in sterile manner. Wire lid speculum was placed in the eye. Betadine drops were placed on the eye. This was irrigated. Lidocaine jelly was placed on the eye. A paracentesis port was created with a side-port blade. 0.1 mL 1% preservative free lidocaine was injected into the anterior chamber. The anterior chamber was deepened with viscoelastic. 2.6 mm keratome was used to create a temporal clear corneal incision. Cystotome and Utrata forceps were used to create continuous tear capsulorrhexis. Balanced salt solution was used to hydro dissect the nucleus. The phacoemulsification handpiece was inserted and the nucleus was removed using the stop and chop technique. The irrigation aspiration handpiece was inserted and the remaining cortex was removed. Anterior chamber was deepened with viscoelastic. An Nelson DIB00 intraocular lens with a power of 25.0 was injected into the capsular bag. Irrigation aspiration handpiece was inserted and the remaining viscoelastic was removed. Incision was hydrated with balanced salt solution and found to be leak free with pressure with Weck-Micheline sponges. 0.1 mL Vigamox injected anterior chamber. 0.3 mL Kenalog 10 mg was injected subconjunctivally. Lid speculum was removed. The patient left the operating room in excellent condition. Complications: none Post-operative Condition: stable Disposition: same day surgery
[2021-01-25] MEDS: HYALURONATE SODIUM 30 MG-10 MG/ML SYRINGES 1 BOX INTRAOCULA (08:49)
[2021-01-25] MEDS: MOXIFLOXACIN INJ 4 MG/0.8 ML VIAL 0.5 MG EYE-OP (08:49)
[2021-01-25] MEDS: PHENYLEPHRINE/LIDOCAINE VIAL (OR) 0.2 ML EYE-OP (08:49)
[2021-01-25] MEDS: TETRACAINE 0.5% OPHTH DROPS 4 ML 2 DROPS EYE-OP (08:50)
[2021-01-25] MEDS: TRIAMCINOLONE 50 MG/5 ML VIAL INJ (08:50)
[2021-01-25] MEDS: BALANCED SALT IRRIG SOLN NO.2 500 ML, EPINEPHrine 1 MG IRR (08:50)
[2021-01-25] MEDS: LIDOCAINE 2% (GLYDO) 6 ML GEL TOP (08:50)
[2021-01-25 09:06] VITALS: BP 119/77; PULSE 62; RESP 16; TEMP 36.6; O2SAT 98
== END 2021-01-25 09:11 | disposition home or self-care (01) ==
PROVIDERS: PCP Family Medicine; Referring Provider Ophthalmology; Visit Provider Ophthalmology
PROC: (CPT 66984; principal; 2021-01-25 08:45)
DX: H25.12 Age-related nuclear cataract, left eye (principal); F41.9 Anxiety disorder, unspecified
CPT/HCPCS: 66984; J0171; J2250; J3301

== ENCOUNTER → 2021-07-05 08:49 | Outpatient (CLI) | payer MEDICARE, SELFPAY ==
[2020-07-27 13:33] VITALS: BMI 20.1
--- NOTE | 2021-07-05 08:51 | DI.MG.S_ITS ---
UNILATERAL LEFT DIGITAL DIAGNOSTIC MAMMOGRAM 3D/2D - RIGHT BREAST POST MASTECTOMY: 07/05/2021 CLINICAL: Routine screening left. Hx of right mastectomy. Comparison is made to exams dated: 07/06/2020 breast MRI, 06/23/2020 mammogram, 06/09/2020 mammogram, 06/09/2020 ultrasound, and 09/20/2019 mammogram - . The tissue of left breast is heterogeneously dense. This may lower the sensitivity of mammography. No significant masses, calcifications, or other findings are seen in the breast. Left mammograms are stable. IMPRESSION: NEGATIVE There is no mammographic evidence of malignancy. Return to annual mammogram screening schedule is recommended. Findings and recommendations were conveyed to the patient at time of exam. This exam was interpreted at Station ID: [id number]. NOTE: For mammograms, a report in lay terms will be sent to the patient. Approximately 15% of breast malignancies will not be visualized mammographically. In the management of a palpable breast mass, a negative mammogram must not discourage biopsy of a clinically suspicious lesion. Electronically Signed By: Selene kincaid/:07/05/2021 09:18:36 Entry: - 07/06/2021 09:59:06 letter sent: Normal Exam ACR BI-RADS Category 1: Negative 3341F
== END ==
PROVIDERS: PCP Family Medicine; Referring Provider Internal Medicine Hematology & Oncology; Visit Provider Internal Medicine Hematology & Oncology
DX: C50.311 Malignant neoplasm of lower-inner quadrant of right female breast; Z17.0 Estrogen receptor positive status [ER+]; Z12.31 Encounter for screening mammogram for malignant neoplasm of breast; Z90.11 Acquired absence of right breast and nipple
CPT/HCPCS: 77065; G0279

== ENCOUNTER → 2021-08-02 09:17 | Outpatient (CLI) | payer MEDICARE, SELFPAY ==
[2020-07-27 13:33] VITALS: BMI 20.1
--- NOTE | 2021-08-02 09:19 | DI.MRI.S_ITS ---
PROCEDURE: MR HEAD/BRAIN WO/W CON INDICATIONS: breast cancer, now with dizziness, headache and nausea TECHNIQUE: Noncontrast axial T1 spin echo, axial T2 fast spin echo, sagittal and axial FLAIR, coronal T2 fast spin echo, axial gradient echo, axial diffusion and ADC through the brain. After the administration of contrast, axial and coronal and sagittal T1 spin echo with fat saturation through the brain. COMPARISON: None. FINDINGS: Image quality: Excellent. CSF spaces: Basal cisterns are patent. No extra-axial fluid collections. Ventricles are normal in size and shape. Brain: No midline shift. No intracranial bleeds or masses. No abnormal intracranial enhancement. There is cerebral volume loss for age. There is periventricular white matter chronic small vessel ischemic change. The brainstem appears normal. Diffusion-weighted images demonstrate no acute ischemic insults. No chronic ischemic insults. Normal intravascular flow voids are present. Skull and face: Calvarial marrow is normal in signal. Orbits appear normal. Sinuses: Sinuses and mastoids appear clear. IMPRESSION: No evidence of intracranial metastatic disease or other acute intracranial abnormality. Mild global cerebral volume loss and chronic microvascular ischemic changes present. Dictated by: Gulshan Carranza M.D. on 08/02/2021 at 10:56 Approved by: Gulshan Carranza M.D. on 08/02/2021 at 10:57
== END ==
PROVIDERS: PCP Family Medicine; Referring Provider Internal Medicine Hematology & Oncology; Visit Provider Internal Medicine Hematology & Oncology
DX: R42 Dizziness and giddiness (principal); C50.911 Malignant neoplasm of unspecified site of right female breast; R51.9 Headache, unspecified; R11.0 Nausea
CPT/HCPCS: 70553

== ENCOUNTER → 2021-12-01 07:07 | Outpatient (CLI) | payer MEDICARE, SELFPAY ==
[2020-07-27 13:33] VITALS: BMI 20.1
[2021-12-01 08:50] LABS: Add Manual Diff / Slide Review NO; Basophils Absolute Auto 0 /uL (0-100); Basophils Percent Auto 0.6 % (0-2); Eosinophils Absolute Auto 0 /uL (0-450); Eosinophils Percent Auto 0.7 % (2-4); Hemoglobin 13.3 g/dL (12.0-16.0); Lymphocytes Absolute Auto 600 /uL (1100-4500); Lymphocytes Percent Auto 8.5 % (25-40); Mean Corpuscular HGB Conc 33.3 % (30-36); Mean Corpuscular Hemoglobin 29.3 PG (26-34); Mean Corpuscular Volume 88.1 fL (80-100); Monocytes Absolute Auto 400 /uL (0-900); Monocytes Percent Auto 5.5 % (3-14); Neutrophils Absolute Auto 5800 /uL (1500-7000); Neutrophils Percent Auto 84.7 % (50-75); Platelet Count 218 X10^3/uL (150-400); Red Blood Cell Count 4.54 X10^6/uL (4.0-5.2); White Blood Cell Count 6.9 X10^3/uL (4.5-11.0)
[2021-12-01 09:11] LABS: Alanine Aminotransferase 19 IU/L (<35); Albumin 4.3 g/dL (3.5-5.0); Albumin Globulin Ratio 1.5 (1.0-2.8); Alkaline Phosphatase 67 U/L (38-126); Aspartate Aminotransferase 26 IU/L (14-36); BUN Creatinine Ratio 24.6 (6-22); Bilirubin Total 0.7 mg/dL (0.2-1.3); Blood Urea Nitrogen 15 mg/dL (7-17); Calcium 8.6 mg/dL (8.4-10.2); Carbon Dioxide 27 mmol/L (22-32); Chloride 102 mmol/L (98-107); Cholesterol 189 mg/dL (140-199); Estimated Glomerular Filt Rate > 60 mL/min (>60); Globulin 2.9 g/dL (1.7-4.1); Glucose 97 mg/dL (80-110); HDL Cholesterol 67 mg/dL (40-60); HEMOLYSIS < 15 (0-50); LDL Cholesterol Calculated 98 mg/dL (<100); Potassium 4.1 mmol/L (3.4-5.1); Sodium 139 mmol/L (137-145); Total Protein 7.2 g/dL (6.3-8.2); Triglycerides 119 mg/dL (35-150)
== END ==
PROVIDERS: PCP Family Medicine; Referring Provider Family Medicine; Visit Provider Family Medicine
DX: C80.1 Malignant (primary) neoplasm, unspecified (principal); Z13.220 Encounter for screening for lipoid disorders; C50.911 Malignant neoplasm of unspecified site of right female breast; I10 Essential (primary) hypertension
CPT/HCPCS: 36415; 80053; 80061; 85025

== ENCOUNTER → 2022-06-09 08:43 | Outpatient (CLI) | payer MEDICARE, SELFPAY ==
[2020-07-27 13:33] VITALS: BMI 20.1
--- NOTE | 2022-06-09 08:44 | DI.MG.S_ITS ---
UNILATERAL LEFT DIGITAL DIAGNOSTIC MAMMOGRAM 3D/2D: 06/09/2022 CLINICAL: Intermittent pain in left breast. Hx of Right breast cancer and mastectomy. Comparison is made to exams dated: 07/05/2021 mammogram, 07/06/2020 breast MRI, 06/09/2020 mammogram, 09/20/2019 mammogram, and 05/13/2018 mammogram - [facility]. The left breast is heterogeneously dense, which may obscure small masses (category c / 51-75% glandular tissue). No significant masses, calcifications, or other findings are seen in the breast. IMPRESSION: NEGATIVE There is no mammographic abnormality seen in the left breast to correspond with the diffuse, intermittent pain, however, clinical followup is recommended. There is no mammographic evidence of malignancy. A 1 year screening mammogram is recommended. This exam was interpreted at Station ID: [id number]. NOTE: For mammograms, a report in lay terms will be sent to the patient. Approximately 15% of breast malignancies will not be visualized mammographically. In the management of a palpable breast mass, a negative mammogram must not discourage biopsy of a clinically suspicious lesion. Electronically Signed By: Allison juarez/:06/09/2022 12:21:42 Entry: - 06/09/2022 12:21:42 letter sent: Clinical Evaluation ACR BI-RADS Category 1: Negative 3341F
== END ==
PROVIDERS: PCP Family Medicine; Referring Provider Internal Medicine Hematology & Oncology; Visit Provider Internal Medicine Hematology & Oncology
DX: Z17.0 Estrogen receptor positive status [ER+]; C50.311 Malignant neoplasm of lower-inner quadrant of right female breast; N64.4 Mastodynia
CPT/HCPCS: 77065; G0279

== ENCOUNTER → 2022-07-17 17:10 | Outpatient (CLI) | payer MEDICARE, SELFPAY ==
[2020-07-27 13:33] VITALS: BMI 20.1
[2022-07-17 18:39] LABS: Add Manual Diff / Slide Review NO; Basophils Absolute Auto 0 /uL (0-100); Basophils Percent Auto 0.4 % (0-2); Eosinophils Absolute Auto 200 /uL (0-450); Eosinophils Percent Auto 2.5 % (2-4); Hematocrit 42.9 % (36-46); Hemoglobin 14.2 g/dL (12.0-16.0); Lymphocytes Absolute Auto 2300 /uL (1100-4500); Lymphocytes Percent Auto 35.4 % (25-40); Mean Corpuscular HGB Conc 33.1 % (30-36); Mean Corpuscular Hemoglobin 29.9 PG (26-34); Mean Corpuscular Volume 90.2 fL (80-100); Monocytes Absolute Auto 400 /uL (0-900); Monocytes Percent Auto 6.8 % (3-14); Neutrophils Absolute Auto 3500 /uL (1500-7000); Neutrophils Percent Auto 54.9 % (50-75); Platelet Count 251 X10^3/uL (150-400); Red Blood Cell Count 4.76 X10^6/uL (4.0-5.2); White Blood Cell Count 6.5 X10^3/uL (4.5-11.0)
[2022-07-17 19:09] LABS: Alanine Aminotransferase 30 IU/L (<35); Albumin 4.8 g/dL (3.5-5.0); Albumin Globulin Ratio 1.5 (1.0-2.8); Alkaline Phosphatase 70 U/L (38-126); Aspartate Aminotransferase 40 IU/L (14-36); BUN Creatinine Ratio 16.2 (6-22); Bilirubin Total 0.5 mg/dL (0.2-1.3); Blood Urea Nitrogen 11 mg/dL (7-17); Calcium 9.1 mg/dL (8.4-10.2); Carbon Dioxide 31 mmol/L (22-32); Chloride 98 mmol/L (98-107); Estimated Glomerular Filt Rate > 60 mL/min (>60); Globulin 3.2 g/dL (1.7-4.1); Glucose 85 mg/dL (80-110); HEMOLYSIS < 15 (0-50); Lipase 143 U/L (23-300); Potassium 3.9 mmol/L (3.4-5.1); Sodium 137 mmol/L (137-145)
[2022-07-17 19:13] LABS: High Sensitivity CRP - Cardiac 1.4 mg/L (1.0-3.0)
== END ==
PROVIDERS: PCP Family Medicine; Referring Provider Family Medicine; Visit Provider Family Medicine
DX: E78.5 Hyperlipidemia, unspecified (principal); R10.9 Unspecified abdominal pain; R11.2 Nausea with vomiting, unspecified
CPT/HCPCS: 36415; 80053; 83690; 85025; 86140

== ENCOUNTER → 2023-06-18 07:39 | Outpatient (CLI) | payer MEDICARE, SELFPAY ==
[2020-07-27 13:33] VITALS: BMI 20.1
--- NOTE | 2023-06-18 07:41 | DI.MG.S_ITS ---
UNILATERAL LEFT DIGITAL SCREENING MAMMOGRAM 3D/2D WITH CAD: 06/18/2023 CLINICAL: Routine screening. Personal history of right breast cancer. Comparison is made to exams dated: 06/09/2022 mammogram, 07/05/2021 mammogram, and 06/09/2020 mammogram - [facility]. The left breast is heterogeneously dense, which may obscure small masses (category c / 51-75% glandular tissue). Current study was also evaluated with a Computer Aided Detection (CAD) system. No significant masses, calcifications, or other findings are seen in the breast. There has been no significant interval change. IMPRESSION: NEGATIVE There is no mammographic evidence of malignancy. A 1 year screening mammogram is recommended. This exam was interpreted at Station ID: [id number]. NOTE: For mammograms, a report in lay terms will be sent to the patient. Approximately 15% of breast malignancies will not be visualized mammographically. In the management of a palpable breast mass, a negative mammogram must not discourage biopsy of a clinically suspicious lesion. Electronically Signed By: Selene kincaid/vanna:06/18/2023 17:05:47 letter sent: Normal Exam ACR BI-RADS Category 1: Negative 3341F
== END ==
PROVIDERS: PCP Family Medicine; Referring Provider Internal Medicine Hematology & Oncology; Visit Provider Internal Medicine Hematology & Oncology
DX: Z12.31 Encounter for screening mammogram for malignant neoplasm of breast (principal); Z85.3 Personal history of malignant neoplasm of breast; R92.332 Mammographic heterogeneous density, left breast
CPT/HCPCS: 77063; 77067

== ENCOUNTER → 2023-12-07 09:05 | Outpatient (CLI) | payer MEDICARE, SELFPAY ==
[2020-07-27 13:33] VITALS: BMI 20.1
[2023-12-07 10:34] LABS: Cholesterol 222 mg/dL (140-199); HDL Cholesterol 85 mg/dL (40-60); LDL Cholesterol Calculated 116 mg/dL (<100); Triglycerides 104 mg/dL (35-150)
[2023-12-07 10:58] LABS: High Sensitivity CRP - Cardiac 1.5 mg/L (1.0-3.0)
== END ==
LOC: LAB 09:06
PROVIDERS: PCP Family Medicine; Referring Provider Family Medicine; Visit Provider Family Medicine
DX: E78.5 Hyperlipidemia, unspecified (principal)
CPT/HCPCS: 36415; 80061; 86140

== ENCOUNTER → 2023-12-07 14:48 | Outpatient (CLI) | payer MEDICARE, SELFPAY ==
[2020-07-27 13:33] VITALS: BMI 20.1
--- NOTE | 2023-12-07 14:50 | DI.RAD.S_ITS ---
PROCEDURE: XR DEXA AXIAL SKELETON INDICATIONS: bone density screening COMPARISON: [facility], CR, XR DEXA AXIAL SKELETON, 10/20/2020, 11:05. FINDINGS: Lumbar Spine: Bone mineral density 0.845 g/cm2, T score -1.8, statistically significant decreased compared to prior by 10.2%. Left Hip: Bone mineral density 0.840 g/cm2, T score -0.8, statistically significant decreased compared to prior by 3.3%. Left Femoral Neck: Bone mineral density 0.716 g/cm2, T score -1.2. Right Hip: Bone mineral density 0.807 g/cm2, T score -1.1, no statistically significant change. Right Femoral Neck: Bone mineral density 0.713 g/cm2, T score -1.2. Fracture Risk Calculation (when applicable): 10-year fracture risk of a major osteoporotic fracture 4.4 percent and of a hip fracture 0.5 percent. (T score greater or equal to -1.0 to: NORMAL) (T score from -1.1 to -2.4: OSTEOPENIA) (T score less than or equal to -2.5: OSTEOPOROSIS) IMPRESSION: Low bone mineral density (osteopenia) by WHO classification. Follow-up guidelines as follows: Osteoporosis: Consider a repeat DEXA and Vertebral Fracture Assessment (VFA) exam in 2 years or sooner if medically necessary, to reassess this patient's status. Osteopenia: Consider a repeat DEXA in 2-3 years to reassess this patient's status, or if there is a new clinical indication. Normal: Consider a repeat DEXA in 5 years or sooner, or if there is a new clinical indication. All treatment decisions require clinical judgment and consideration of individual patient factors, including patient preferences, comorbidities, previous drug use, risk factors not captured in the FRAX model (e.g., frailty, falls, vitamin D deficiency, increased bone turnover, interval significant decline in bone density ) and possible under- or over-estimation of fracture risk by FRAX. In addition, the NOF Guide recommends that FDA-approved medical therapies be considered in postmenopausal women and men age >= 50 years with a: * Hip or vertebral (clinical or morphometric) fracture * T-score of <=-2.5 at the spine or hip * Ten-year fracture probability by FRAX of >= 3% for hip fracture or >=20% for major osteoporotic fracture. People with diagnosed cases of osteoporosis or at high risk for fracture should have regular bone mineral density tests. For patients eligible for Medicare, routine testing is allowed once every 2 years. The testing frequency can be increased to one year for patients who have rapidly progressing disease, those who are receiving or discontinuing medical therapy to restore bone mass, or have additional risk factors. Dictated by: Audie Pappas M.D. on 12/07/2023 at 16:32 Approved by: Audie Pappas M.D. on 12/07/2023 at 16:34
== END ==
LOC: RAD 14:49
PROVIDERS: PCP Family Medicine; Referring Provider Family Medicine; Visit Provider Family Medicine
DX: M85.89 Other specified disorders of bone density and structure, multiple sites (principal); E78.5 Hyperlipidemia, unspecified
CPT/HCPCS: 36415; 77080; 80061; 86140

== ENCOUNTER 2024-01-23 16:06 | Outpatient (RCR) | payer MEDICARE, SELFPAY ==
[2020-07-27 13:33] VITALS: BMI 20.1
--- NOTE | 2024-01-23 17:00 | PT.OPPOC ---
Physical, Occupational & Speech Therapy At [facility] Current Diagnoses Arthropathy, unspecified (01/23/24) Pain in right shoulder (01/23/24) Visit Care Team Role Provider Type Delmis Caldera DO Attending Provider Physician Family Provider Primary Care Provider Referring Provider Specialty: Medical Address: [address] [place] [address], [address], [place], [address] Email: [email or web address] Plan Of Care PT-OP-B Current Condition Start: 01/23/24 16:41 Freq: Status: Active Protocol: Document 01/23/24 16:15 DCW (Rec: 01/23/24 16:54 DCW [id number]) Current Condition History of Current Condition Current Complaints Prior R shoulder pain History of Current Condition Pt is a 69 year old female presenting with a recent history of right shoulder pain . Pt reports that she was experiencing some increased right shoulder pain along her upper trap. No longer gives her much pain, not restricted with any motion. 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 Did have surgery in 2020 secondary to breast cancer, but afterward was able to get right back to work with no limitations, does not believe there were any compensatory movements through her shoulder at that time. Overall would like some stretches for home. PT-OP-T Assessment and Plan Start: 01/23/24 16:41 Freq: Status: Active Protocol: Document 01/23/24 16:15 DCW (Rec: 01/24/24 09:36 DCW [id number]) Physical Therapy Assessment Evaluation Complexity Number of Personal Factors/Comorbidities 1-2 Number of Body Systems Impaired 1-2 Clinical Presentation at Evaluation Stable Assessment Summary Assessment Pt presents with a largely negative initial evaluation. Per pt, she has pretty much recovered back to baseline since her initial complaint of shoulder pain. Some minor upper trap tightness, but no functional limitations, no complaints, no immobility. Good UE strength, R=L. Pt provided with some upper trap and scalene stretches for home , but will be unlikely to benefit from further therapeutic intervention. Pt will be discharged from skilled therapy at this time. Physical Therapy Plan Frequency and Duration Frequency of Treatment 1x/Week Plan of Care Start Date 12/11/24 Plan of Care End Date 01/24/24 Discharge Physical Therapy Discharge Comments No further skilled therapy indicated at this time. Plan of Care Dates Plan of Care Start Date 01/23/24 Plan of Care End Date 01/24/24 Electronically Signed by: Ceferino Salazar, PT 01/24/24 0937 If you are in agreement with this Plan of Care, please return a signed and dated copy. I have reviewed this Plan of Care and certify that the skilled therapy services above are required to meet the patient?s needs. Physician Signature Date Printed Name and Credentials Clinical Instructor Signature Printed Name and Credentials
--- NOTE | 2024-01-23 17:00 | PT.OIE ---
Current Diagnoses Arthropathy, unspecified (01/23/24) Pain in right shoulder (01/23/24) Past Medical History (Last Updated 11/27/22 @ 08:30 by Delmis Caldera DO) Anxiety Endometriosis GERD (gastroesophageal reflux disease) Invasive ductal carcinoma of right breast Nephrolithiasis Peptic ulcer Tubo-ovarian abscess (~2000) Past Surgical History (Last Reviewed 09/17/20 @ 12:54 by Rex Terry MD) H/O laparoscopy (~08/2006) History of abdominal supracervical subtotal hysterectomy (~01/2003) History of esophagogastroduodenoscopy (EGD) (~05/2007) History of esophagogastroduodenoscopy (EGD) (~03/2009) History of laparotomy (~2000) Visit Care Team Role Provider Type Delmis Caldera DO Attending Provider Physician Family Provider Primary Care Provider Referring Provider Specialty: Medical Address: [address] [place] [address], [address], [place], [facility] Email: [email or web address] Physical Therapy Initial Evaluation PT-OP-A Visit Information Start: 01/23/24 16:41 Freq: Status: Active Protocol: Document 01/23/24 16:15 DCW (Rec: 01/23/24 16:54 [facility] [id number]) Out-Patient Physical Therapy Visit Information Visit Information Visit Type Initial Evaluation Visit Start Time 16:15 Visit Stop Time 16:40 Visit Number 1 Number of RESIN COATER Visits 0 Evaluation Information Evaluation Date 01/23/24 PT-OP-B Current Condition Start: 01/23/24 16:41 Freq: Status: Active Protocol: Document 01/23/24 16:15 DCW (Rec: 01/23/24 16:54 [facility] [id number]) Current Condition History of Current Condition Current Complaints Prior R shoulder pain History of Current Condition Pt is a 69 year old female presenting with a recent history of right shoulder pain . Pt reports that she was experiencing some increased right shoulder pain along her upper trap. No longer gives her much pain, not restricted with any motion. 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 Did have surgery in 2020 secondary to breast cancer, but afterward was able to get right back to work with no limitations, does not believe there were any compensatory movements through her shoulder at that time. Overall would like some stretches for home. PT-OP-C Subjective Start: 01/23/24 16:41 Freq: Status: Active Protocol: Document 01/23/24 16:15 DCW (Rec: 01/23/24 16:54 DCW [id number]) OP-PT Subjective Patient Comments Patient Comments It was worse when I saw my PCP, but it's pretty much fine now. Patient Reported Progress Improving Patient Questionnaires Quick Dash- Upper Extremity Quick Dash UE Score 10% Quick Dash UE Impairment 1 to 19% Impaired (Score 1-19) PT-OP-F Manual Assessment Start: 01/23/24 16:41 Freq: Status: Active Protocol: Document 01/23/24 16:15 DCW (Rec: 01/23/24 16:54 DCW [id number]) Manual Assessments Soft Tissue Assessment Soft Tissue Mobility Assessment Mild right upper trap tone PT-OP-K Range of Motion Start: 01/23/24 16:41 Freq: Status: Active Protocol: Document 01/23/24 16:15 DCW (Rec: 01/23/24 16:54 DCW [id number]) Shoulder Goniometric Range of Motion Shoulder Right Active Shoulder ROM WFL Yes Testing Position Sitting Flexion 180 Abduction 180 External Rotation at 0 degrees Abduction 80 Left Active Shoulder ROM WFL Yes Testing Position Sitting Flexion 180 Abduction 180 External Rotation at 0 degrees Abduction 80 PT-OP-L Special Tests Start: 01/23/24 16:41 Freq: Status: Active Protocol: Document 01/23/24 16:15 DCW (Rec: 01/23/24 16:54 DCW [id number]) Special Tests Shoulder Special Tests Passive ER Rotator Cuff Test Results Negative Lift-Off Rotator Cuff Test Results Negative Michelle Boris Impingement Test Results Negative Grind Labrum Test Results Negative Empty Can Test Results Negative Drop Arm Rotator Cuff Test Results Negative Clunk Test Test Results Negative Belly Press Test Results Negative Apprehension Test Test Results Negative PT-OP-M Strength Start: 01/23/24 16:41 Freq: Status: Active Protocol: Document 01/23/24 16:15 DCW (Rec: 01/23/24 16:54 DCW [id number]) Shoulder Strength Shoulder Manual Muscle Testing Right Flexion 4+ Good+ Abduction (C5) 4+ Good+ External Rotation 4+ Good+ Internal Rotation 4+ Good+ Left Flexion 4+ Good+ Abduction (C5) 4+ Good+ External Rotation 4+ Good+ Internal Rotation 4+ Good+ PT-OP-Q Treatments Start: 01/23/24 16:41 Freq: Status: Active Protocol: Document 01/23/24 16:15 DCW (Rec: 01/23/24 16:54 DCW [id number]) Therapeutic Exercises Sitting Exercises SCM Sitting Exercise Name SCM stretch Side right Scalenes Sitting Exercise Name Scalene Side right Upper Trap Sitting Exercise Name Upper trap stretch Side right PT-OP-T Assessment and Plan Start: 01/23/24 16:41 Freq: Status: Active Protocol: Document 01/23/24 16:15 DCW (Rec: 01/24/24 09:36 DCW [id number]) Physical Therapy Assessment Evaluation Complexity Number of Personal Factors/Comorbidities 1-2 Number of Body Systems Impaired 1-2 Clinical Presentation at Evaluation Stable Assessment Summary Assessment Pt presents with a largely negative initial evaluation. Per pt, she has pretty much recovered back to baseline since her initial complaint of shoulder pain. Some minor upper trap tightness, but no functional limitations, no complaints, no immobility. Good UE strength, R=L. Pt provided with some upper trap and scalene stretches for home , but will be unlikely to benefit from further therapeutic intervention. Pt will be discharged from skilled therapy at this time. Physical Therapy Plan Frequency and Duration Frequency of Treatment 1x/Week Plan of Care Start Date 01/23/24 Plan of Care End Date 01/24/24 Discharge Physical Therapy Discharge Comments No further skilled therapy indicated at this time.
== END 2024-01-30 15:27 | disposition home or self-care (01) ==
LOC: PHYS 16:06
PROVIDERS: Family Provider Family Medicine; PCP Family Medicine; Referring Provider Family Medicine; Visit Provider Family Medicine
DX: M12.9 Arthropathy, unspecified (principal); M25.511 Pain in right shoulder
CPT/HCPCS: 97110; 97161

== ENCOUNTER 2024-03-25 20:17 | Emergency (ER) | payer MEDICARE, SELFPAY ==
[2020-07-27 13:33] VITALS: BMI 20.1
[2024-03-25 20:33] VITALS: BP 172/81; PULSE 67; RESP 18; TEMP 36.6; O2SAT 100; BMI 21.0
--- NOTE | 2024-03-25 20:39 | EKG_ITS ---
[place] [id number] [place] [id number] Test Date: 2024-03-25 Pat Name: Leni Lind Department: [facility] Room: Gender: Female Liaison Engineer: JULIO : 1955 Requested By: Order Number: [id number] Reading MD: Bk Figueredo MD Measurements Intervals [place] Rate: 63 P: 76 ID: [id number] QRS: 90 QRSD: 76 T: 77 QT: 386 QTc: 395 Interpretive Statements Normal sinus rhythm Rightward axis Minimal voltage criteria for LVH, may be normal variant ( Sokolow-Osorio ) NO PRIOR TRACING Electronically Signed On 03-26-2024 8:02:17 PST by Bk Figueredo MD
[2024-03-25] MEDS: ONDANSETRON 4 MG/2 ML INJ IV (20:50)
[2024-03-25 20:54] LABS: Add Manual Diff / Slide Review NO; Basophils Absolute Auto 0 /uL (0-100); Basophils Percent Auto 0.6 % (0-2); Eosinophils Absolute Auto 100 /uL (0-450); Eosinophils Percent Auto 1.4 % (2-4); Hematocrit 41.2 % (36-46); Hemoglobin 13.7 g/dL (12.0-16.0); Lymphocytes Absolute Auto 1400 /uL (1100-4500); Lymphocytes Percent Auto 23.2 % (25-40); Mean Corpuscular HGB Conc 33.2 % (30-36); Mean Corpuscular Hemoglobin 29.6 PG (26-34); Mean Corpuscular Volume 89.1 fL (80-100); Monocytes Absolute Auto 300 /uL (0-900); Monocytes Percent Auto 5.2 % (3-14); Neutrophils Absolute Auto 4300 /uL (1500-7000); Neutrophils Percent Auto 69.6 % (50-75); Platelet Count 189 X10^3/uL (150-400); Red Blood Cell Count 4.63 X10^6/uL (4.0-5.2); Red Cell Distribution Width 13.7 % (11.6-14.8); White Blood Cell Count 6.2 X10^3/uL (4.5-11.0)
[2024-03-25 21:10] LABS: Alanine Aminotransferase 79 IU/L (<35); Albumin 4.7 g/dL (3.5-5.0); Albumin Globulin Ratio 1.5 (1.0-2.8); Alkaline Phosphatase 84 U/L (38-126); Aspartate Aminotransferase 72 IU/L (14-36); BUN Creatinine Ratio 29.8 (6-22); Bilirubin Total 0.7 mg/dL (0.2-1.3); Blood Urea Nitrogen 17 mg/dL (7-17); Carbon Dioxide 29 mmol/L (22-32); Chloride 100 mmol/L (98-107); Estimated Glomerular Filt Rate > 60 mL/min (>60); Globulin 3.1 g/dL (1.7-4.1); Glucose 107 mg/dL (80-110); HEMOLYSIS 26 (0-50); Lipase 120 U/L (23-300); Potassium 3.8 mmol/L (3.4-5.1); Sodium 134 mmol/L (137-145); Total Protein 7.8 g/dL (6.3-8.2)
[2024-03-25 21:20] VITALS: BP 183/74; PULSE 67; TEMP 37; O2SAT 100
--- NOTE | 2024-03-25 21:25 | DI.CT.S_ITS ---
PROCEDURE: CT ABDOMEN PELVIS W CON INDICATIONS: hs sbo with nausea TECHNIQUE: After the administration of intravenous contrast, axial sections acquired from the lung bases to the pubic symphysis. Coronal and sagittal reformats were performed. For radiation dose reduction, the following was used: automated exposure control, adjustment of mA and/or kV according to patient size. COMPARISON: None. FINDINGS: Image quality: Diagnostic Lower chest: There are small fat containing Bochdalek's hernias. Scattered scarring and atelectasis. 5 mm right middle lobe nodule, nonspecific, along with other small nodules: optional follow-up chest CT may be initiated 1 year depending on patient risk factors per consensus guidelines. Liver: Subcentimeter lesions are too small to characterize, usually cysts or hemangiomas. Gallbladder and biliary system: Unremarkable, nondilated Pancreas: No ductal dilation Spleen: Nonenlarged Adrenals: No discrete nodules Kidneys: No solid mass. No hydronephrosis. Vessels and lymph nodes: The main portal vein is patent. No abdominal aortic aneurysm. No pathologic lymphadenopathy by size criteria Retroaortic left renal vein. Bowel and peritoneum: Nonspecific mild wall thickening at the gastroesophageal junction and distal stomach. There is no acute small bowel obstruction. No pathologic ascites or drainable abscess. There is mild wall thickening at the rectum and distal colon Moderate to large fecal loading in the proximal colon. Fecal material is also seen in the distal ileum, usually due to slow transit through the ileocecal valve Body wall: Unremarkable Pelvis: Bladder is unremarkable. Uterus not seen. Bones: There are degenerative changes. IMPRESSION: Probable findings of distal colitis and proctitis. There is moderate to large upstream fecal loading. Distal ileal fecal material is usually due to slow transit. No significant bowel obstruction. Mild wall thickening also seen at the gastroesophageal junction and distal stomach, representing gastroesophagitis versus artifact of under distention. Other findings above. Dictated by: Edwin Kamara M.D. on 03/25/2024 at 22:01 Approved by: Edwin Kamara M.D. on 03/25/2024 at 22:07
[2024-03-26] VITALS (20 sets, daily range): BP systolic 107–178; BP diastolic 55–80; PULSE 61–79; RESP 15–20; TEMP 36.4; O2SAT 97–100
--- NOTE | 2024-03-26 03:29 | ED.ABDPAIN ---
HPI - Abdominal Pain <Adrianna DO Jesus - Last Filed: 03/28/24 10:13> General Chief Complaint: Abdominal Pain Stated Complaint: poss bowel obstruction, feeling dizzy Time Seen by Provider: 03/26/24 03:25 Source: patient Mode of arrival: Ambulatory History of Present Illness HPI narrative: Patient is a 69-year-old female history of ductal carcinoma of right breast, GERD prior bowel obstructions multiple surgeries presenting today with abdominal pain. She reports she has not passing gas and had a very small bowel movement this morning. She is also reporting significant dizziness. It sounds like she has a history of vertigo she has been throwing up as well. No chest pain or shortness of breath. He has been lying in the ED now for some time however when she sits up she gets extremely dizzy. No numbness tingling or weakness. She denies fever or chills. Related Data Home Medications Medication Instructions Recorded Confirmed cholecalciferol (vitamin D3) 50 50 mcg PO DAILY ##0 12/21/11 03/24/24 mcg (2,000 unit) capsule (Vitamin D3) multivitamin 1 cap PO DAILY ##0 12/21/11 03/24/24 vitamin E 100 unit tablet 1 unit PO DAILY ##0 12/21/11 03/24/24 calcium 600 mg capsule 600 mg PO BID 07/21/21 03/24/24 cyanocobalamin (vitamin B-12) 1,000 mcg PO DAILY 07/21/21 03/24/24 1,000 mcg capsule diphenhydramine HCl 25 mg tablet 25 mg PO BEDTIME PRN 12/07/23 03/24/24 (Benadryl Allergy) Previous Rx's Medication Instructions Recorded anastrozole 1 mg tablet 1 mg PO DAILY #90 tabs 06/26/22 omeprazole 20 mg capsule,delayed 20 mg PO DAILY PRN Heartburn #90 03/05/23 release caps amoxicillin 875 mg-potassium 1 tab PO BID #20 tabs 03/26/24 clavulanate 125 mg tablet ondansetron 4 mg disintegrating 4 mg PO Q6H PRN nausea and 03/26/24 tablet vomiting #10 tabs sodium,potassium,mag sulfates 17.5 See Rx Instructions PO .COMPLEX 03/26/24 gram-3.13 gram-1.6 gram oral soln #354 mL (Suprep Bowel Prep Kit) Allergies Allergy/AdvReac Type Severity Reaction Status Date / Time aspirin [ASPIRIN] AdvReac Mild GI UPSET Verified 03/25/24 20:39 codeine [CODEINE] AdvReac Mild VOMITING Verified 03/25/24 20:39 Patient History <Adrianna Lee DO - Last Filed: 03/28/24 10:13> Medical History Constipation GERD (gastroesophageal reflux disease) Anxiety Endometriosis Tubo-ovarian abscess (~2000) Invasive ductal carcinoma of right breast Peptic ulcer Nephrolithiasis Surgical History History of esophagogastroduodenoscopy (EGD) (~03/2009) History of esophagogastroduodenoscopy (EGD) (~05/2007) H/O laparoscopy (~08/2006) History of abdominal supracervical subtotal hysterectomy (~01/2003) History of laparotomy (~2000) Family History Brother Age: 70 High cholesterol Social History marital status: unknown household members: none Smoking Status: Never smoker alcohol intake: current Smoking Status: Never smoker alcohol intake frequency: holidays/special occasions only Exam <Adrianna Lee DO - Last Filed: 03/28/24 10:13> Initial Vital Signs Initial Vital Signs: Vital Signs Temperature 97.8 F 03/25/24 20:33 Pulse Rate 67 03/25/24 20:33 Respiratory Rate 18 03/25/24 20:33 Blood Pressure 172/81 H 03/25/24 20:33 Pulse Oximetry 100 03/25/24 20:33 Oxygen Delivery Method Room Air 03/25/24 20:33 GENERAL: Alert 69-year-old female and in no acute distress. HEENT: Head atraumatic,EOMI, pupils reactive, no nystagmus face symmetric, moist mucous membranes CARDIOVASCULAR: Regular rate and rhythm without murmurs, rubs or gallops. RESPIRATORY: Breath sounds equal bilaterally, no wheezes rales or rhonchi. ABDOMEN: Soft, nontender. Normoactive bowel sounds all 4 quadrants. No guarding or rebound. No distention no guarding EXTREMITIES: Normal range of motion, no clubbing or edema. Neurovascularly intact NEUROLOGICAL: Alert and oriented x4.Normal gait and speech. Cranial nerves II through XII grossly intact. Good [id number], good [id number], strength equal bilaterally, no dysarthria or aphasia, sensation in tact to soft touch bilaterally, no visual changes, no facial droop SKIN: Warm, dry, no laceration, no petechiae, no rashes or lesions. <Demetrice Vann, DO - Last Filed: 03/26/24 18:24> Initial Vital Signs Initial Vital Signs: Vital Signs Temperature 97.8 F 03/25/24 20:33 Pulse Rate 67 03/25/24 20:33 Respiratory Rate 18 03/25/24 20:33 Blood Pressure 172/81 H 03/25/24 20:33 Pulse Oximetry 100 03/25/24 20:33 Oxygen Delivery Method Room Air 03/25/24 20:33 Course <Adrianna Lee, DO - Last Filed: 03/28/24 10:13> Orders Ordered: Discontinued Medications Sodium Chloride (Normal Saline 0.9%) 1,000 mls @ 1,000 mls/hr IV BOLUS ONE Stop: 03/26/24 05:11 Last Infusion: 03/26/24 05:22 Dose: Infused Documented By: Admin: 03/26/24 04:19 Dose: 1,000 mls/hr Documented By: DAREN Lorazepam (Lorazepam 2 Mg/Ml Inj) 0.5 mg IV NOW ONE Stop: 03/26/24 04:53 Last Admin: 03/26/24 05:16 Dose: 0.5 mg Documented By: DAREN Magnesium Citrate (Magnesium Citrate 300 Ml Solution) 300 ml PO NOW ONE Stop: 03/26/24 03:46 Last Admin: 03/26/24 04:00 Dose: 300 ml Documented By: DAREN Meclizine HCl (Meclizine Hcl 12.5 Mg Tablet) 25 mg PO NOW ONE Stop: 03/26/24 04:17 Last Admin: 03/26/24 04:18 Dose: 25 mg Documented By: DAREN Metoclopramide HCl (Metoclopramide 10 Mg/2 Ml Inj) 10 mg IV NOW ONE Stop: 03/26/24 06:00 Last Admin: 03/26/24 06:10 Dose: 10 mg Documented By: ETHAN Ondansetron HCl (Ondansetron 4 Mg/2 Ml Inj) 4 mg IV NOW PRN PRN Reason: Nausea And Vomiting Last Admin: 03/25/24 20:50 Dose: 4 mg Documented By: NANDO Ondansetron HCl (Ondansetron 4 Mg Odt) 4 mg PO NOW PRN PRN Reason: Nausea And Vomiting Ondansetron HCl (Ondansetron 4 Mg/2 Ml Inj) 4 mg IV NOW ONE Stop: 03/26/24 04:13 Last Admin: 03/26/24 04:19 Dose: 4 mg Documented By: DAREN Vital Signs Vital signs: Vital Signs - 8 hr 03/26/24 02:42 03/26/24 04:28 03/26/24 04:29 Pulse Rate 63 62 Respiratory Rate 15 19 Blood Pressure 146/67 H 178/79 H Pulse Oximetry 97 100 Oxygen Delivery Method Room Air Room Air 03/26/24 05:15 03/26/24 05:16 03/26/24 05:29 Pulse Rate 68 79 65 Respiratory Rate 20 Blood Pressure Pulse Oximetry 100 100 100 Oxygen Delivery Method Room Air 03/26/24 05:31 03/26/24 05:55 03/26/24 06:00 Pulse Rate 69 66 Respiratory Rate 20 Blood Pressure 161/70 H Pulse Oximetry 100 100 Oxygen Delivery Method 03/26/24 06:29 03/26/24 06:29 03/26/24 06:30 Pulse Rate 64 Respiratory Rate Blood Pressure 121/57 L 117/59 L Pulse Oximetry 100 Oxygen Delivery Method 03/26/24 06:30 03/26/24 07:00 03/26/24 07:00 Pulse Rate 64 64 Respiratory Rate 16 Blood Pressure 108/63 Pulse Oximetry 100 100 Oxygen Delivery Method Room Air 03/26/24 07:30 03/26/24 07:30 03/26/24 08:00 Pulse Rate 61 62 Respiratory Rate Blood Pressure 107/55 L Pulse Oximetry 100 100 Oxygen Delivery Method 03/26/24 08:01 03/26/24 08:01 03/26/24 08:36 Pulse Rate 66 68 Respiratory Rate Blood Pressure 160/80 H 141/65 H Pulse Oximetry 100 98 Oxygen Delivery Method <Demetrice Vann, - Last Filed: 03/26/24 18:24> Orders Ordered: Discontinued Medications Sodium Chloride (Normal Saline 0.9%) 1,000 mls @ 1,000 mls/hr IV BOLUS ONE Stop: 03/26/24 05:11 Last Infusion: 03/26/24 05:22 Dose: Infused Documented By: Admin: 03/26/24 04:19 Dose: 1,000 mls/hr Documented By: DAREN Lorazepam (Lorazepam 2 Mg/Ml Inj) 0.5 mg IV NOW ONE Stop: 03/26/24 04:53 Last Admin: 03/26/24 05:16 Dose: 0.5 mg Documented By: DAREN Magnesium Citrate (Magnesium Citrate 300 Ml Solution) 300 ml PO NOW ONE Stop: 03/26/24 03:46 Last Admin: 03/26/24 04:00 Dose: 300 ml Documented By: DAREN Meclizine HCl (Meclizine Hcl 12.5 Mg Tablet) 25 mg PO NOW ONE Stop: 03/26/24 04:17 Last Admin: 03/26/24 04:18 Dose: 25 mg Documented By: DAREN Metoclopramide HCl (Metoclopramide 10 Mg/2 Ml Inj) 10 mg IV NOW ONE Stop: 03/26/24 06:00 Last Admin: 03/26/24 06:10 Dose: 10 mg Documented By: ETHAN Ondansetron HCl (Ondansetron 4 Mg/2 Ml Inj) 4 mg IV NOW PRN PRN Reason: Nausea And Vomiting Last Admin: 03/25/24 20:50 Dose: 4 mg Documented By: NANDO Ondansetron HCl (Ondansetron 4 Mg Odt) 4 mg PO NOW PRN PRN Reason: Nausea And Vomiting Ondansetron HCl (Ondansetron 4 Mg/2 Ml Inj) 4 mg IV NOW ONE Stop: 03/26/24 04:13 Last Admin: 03/26/24 04:19 Dose: 4 mg Documented By: DAREN Vital Signs Vital signs: Vital Signs - 8 hr 03/26/24 02:42 03/26/24 04:28 03/26/24 04:29 Pulse Rate 63 62 Respiratory Rate 15 19 Blood Pressure 146/67 H 178/79 H Pulse Oximetry 97 100 Oxygen Delivery Method Room Air Room Air 03/26/24 05:15 03/26/24 05:16 03/26/24 05:29 Pulse Rate 68 79 65 Respiratory Rate 20 Blood Pressure Pulse Oximetry 100 100 100 Oxygen Delivery Method Room Air 03/26/24 05:31 03/26/24 05:55 03/26/24 06:00 Pulse Rate 69 66 Respiratory Rate 20 Blood Pressure 161/70 H Pulse Oximetry 100 100 Oxygen Delivery Method 03/26/24 06:29 03/26/24 06:29 03/26/24 06:30 Pulse Rate 64 Respiratory Rate Blood Pressure 121/57 L 117/59 L Pulse Oximetry 100 Oxygen Delivery Method 03/26/24 06:30 03/26/24 07:00 03/26/24 07:00 Pulse Rate 64 64 Respiratory Rate 16 Blood Pressure 108/63 Pulse Oximetry 100 100 Oxygen Delivery Method Room Air 03/26/24 07:30 03/26/24 07:30 03/26/24 08:00 Pulse Rate 61 62 Respiratory Rate Blood Pressure 107/55 L Pulse Oximetry 100 100 Oxygen Delivery Method 03/26/24 08:01 03/26/24 08:01 03/26/24 08:36 Pulse Rate 66 68 Respiratory Rate Blood Pressure 160/80 H 141/65 H Pulse Oximetry 100 98 Oxygen Delivery Method MDM - Abdominal Pain <Adrianna Lee, DO - Last Filed: 03/28/24 10:13> Lab Data 03/25/24 20:45 03/25/24 20:45 Labs: Lab Results 03/25/24 03/25/24 Range/Units 20:45 22:10 WBC 6.2 (4.5-11.0) X10^3/uL RBC 4.63 (4.0-5.2) X10^6/uL Hgb 13.7 (12.0-16.0) g/dL Hct 41.2 (36-46) % MCV 89.1 (80-100) fL MCH 29.6 (26-34) PG MCHC 33.2 (30-36) % RDW 13.7 (11.6-14.8) % Plt Count 189 (150-400) X10^3/uL Neut % (Auto) 69.6 (50-75) % Lymph % (Auto) 23.2 L (25-40) % [place] % (Auto) 5.2 (3-14) % Eos % (Auto) 1.4 L (2-4) % Baso % (Auto) 0.6 (0-2) % Neut # (Auto) 4300 (5389-7202) /uL Lymph # (Auto) 1400 (6894-0888) /uL [place] # (Auto) 300 (0-900) /uL Eos # (Auto) 100 (0-450) /uL Baso # (Auto) 0 (0-100) /uL Sodium 134 L (137-145) mmol/L Potassium 3.8 (3.4-5.1) mmol/L Chloride 100 (98-107) mmol/L Carbon Dioxide 29 (22-32) mmol/L BUN 17 (7-17) mg/dL Creatinine 0.57 (0.52-1.04) mg/dL Estimated GFR > 60 (>60) mL/min BUN/Creatinine Ratio 29.8 H (6-22) Glucose 107 (80-110) mg/dL Lactate 1.0 (0.7-2.1) mmol/L Calcium 10.0 (8.4-10.2) mg/dL Total Bilirubin 0.7 (0.2-1.3) mg/dL AST 72 H (14-36) IU/L ALT 79 H (<35) IU/L Alkaline Phosphatase 84 (38-126) U/L Total Protein 7.8 (6.3-8.2) g/dL Albumin 4.7 (3.5-5.0) g/dL Globulin 3.1 (1.7-4.1) g/dL Albumin/Globulin Ratio 1.5 (1.0-2.8) Lipase 120 (23-300) U/L Point of care testing: Urine Dip Bedside Urine Glucose Negative Bedside Urine Bilirubin - Negative Bedside Urine Ketone - Negative Urine Specific [place] 1.015 Bedside Urine Occult Blood - Negative Bedside Urine pH 6.0 Bedside Urine Protein - Negative Bedside Urine Urobilinogen - Negative Bedside Urine Nitrite - Negative Bedside Urine Leukocytes - Negative Esterase Imaging Data CT scan - abdomen/pelvis: Radiologist's Impression: PROCEDURE: CT ABDOMEN PELVIS W CON INDICATIONS: hs sbo with nausea TECHNIQUE: After the administration of intravenous contrast, axial sections acquired from the lung bases to the pubic symphysis. Coronal and sagittal reformats were performed. For radiation dose reduction, the following was used: automated exposure control, adjustment of mA and/or kV according to patient size. COMPARISON: None. FINDINGS: Image quality: Diagnostic Lower chest: There are small fat containing Bochdalek's hernias. Scattered scarring and atelectasis. 5 mm right middle lobe nodule, nonspecific, along with other small nodules: optional follow-up chest CT may be initiated 1 year depending on patient risk factors per consensus guidelines. Liver: Subcentimeter lesions are too small to characterize, usually cysts or hemangiomas. Gallbladder and biliary system: Unremarkable, nondilated Pancreas: No ductal dilation Spleen: Nonenlarged Adrenals: No discrete nodules Kidneys: No solid mass. No hydronephrosis. Vessels and lymph nodes: The main portal vein is patent. No abdominal aortic aneurysm. No pathologic lymphadenopathy by size criteria Retroaortic left renal vein. Bowel and peritoneum: Nonspecific mild wall thickening at the gastroesophageal junction and distal stomach. There is no acute small bowel obstruction. No pathologic ascites or drainable abscess. There is mild wall thickening at the rectum and distal colon Moderate to large fecal loading in the proximal colon. Fecal material is also seen in the distal ileum, usually due to slow transit through the ileocecal valve Body wall: Unremarkable Pelvis: Bladder is unremarkable. Uterus not seen. Bones: There are degenerative changes. IMPRESSION: Probable findings of distal colitis and proctitis. There is moderate to large upstream fecal loading. Distal ileal fecal material is usually due to slow transit. No significant bowel obstruction. Mild wall thickening also seen at the gastroesophageal junction and distal stomach, representing gastroesophagitis versus artifact of under distention. Other findings above. Dictated by: Edwin Kamara M.D. on 03/25/2024 at 22:01 ECG Data Attestation: I personally reviewed and interpreted this ECG as follows: Interpretation: Normal sinus rhythm rate 63 AR interval 140 QRS [address] changes no T-wave inversions MDM Narrative Medical decision making narrative: Patient 61-year-old female history of small-bowel obstructions and surgeries presenting today with abdominal pain nausea and not passing gas. However she was also very dizzy with history of vertigo. Dizziness and vomiting seem to go together. Every time she sits up moves turns her head she gets very nauseous and vomits. She has no focal deficits NIH is 0. This has happened to her before. Her abdomen is soft nontender nondistended. CT shows constipation but no evidence of obstruction. Possible colitis as well. Blood work has been reviewed overall reassuring She has no leukocytosis or anemia or electrolyte abnormality Liver enzymes slightly elevated AST 72 ALT 79 normal bilirubin and a normal lipase EKG reviewed no ischemia or arrhythmia Rolling down patient was doing well was not having any dizziness. However after ambulation trial she got very dizzy and started vomiting again. I do not think vomiting is related to abdominal pain. There is no evidence of obstruction on CT she does have quite a bit of constipation. I think vomiting is mostly related to the vertigo she was really complaining of the room spinning every time she sits. Patient is given IV fluids and Ativan to help with the dizziness. She previously took meclizine and likely threw it up She really continues to throw up she does not feel like her abdomen is in significant pain. She really wants to just try and sleep. Patient signed out to Dr. Vann <Demetrice Vann, - Last Filed: 03/26/24 18:24> Lab Data Labs: Lab Results 03/25/24 03/25/24 Range/Units 20:45 22:10 WBC 6.2 (4.5-11.0) X10^3/uL RBC 4.63 (4.0-5.2) X10^6/uL Hgb 13.7 (12.0-16.0) g/dL Hct 41.2 (36-46) % MCV 89.1 (80-100) fL MCH 29.6 (26-34) PG MCHC 33.2 (30-36) % RDW 13.7 (11.6-14.8) % Plt Count 189 (150-400) X10^3/uL Neut % (Auto) 69.6 (50-75) % Lymph % (Auto) 23.2 L (25-40) % [place] % (Auto) 5.2 (3-14) % Eos % (Auto) 1.4 L (2-4) % Baso % (Auto) 0.6 (0-2) % Neut # (Auto) 4300 (3921-8395) /uL Lymph # (Auto) 1400 (9312-1761) /uL [place] # (Auto) 300 (0-900) /uL Eos # (Auto) 100 (0-450) /uL Baso # (Auto) 0 (0-100) /uL Sodium 134 L (137-145) mmol/L Potassium 3.8 (3.4-5.1) mmol/L Chloride 100 (98-107) mmol/L Carbon Dioxide 29 (22-32) mmol/L BUN 17 (7-17) mg/dL Creatinine 0.57 (0.52-1.04) mg/dL Estimated GFR > 60 (>60) mL/min BUN/Creatinine Ratio 29.8 H (6-22) Glucose 107 (80-110) mg/dL Lactate 1.0 (0.7-2.1) mmol/L Calcium 10.0 (8.4-10.2) mg/dL Total Bilirubin 0.7 (0.2-1.3) mg/dL AST 72 H (14-36) IU/L ALT 79 H (<35) IU/L Alkaline Phosphatase 84 (38-126) U/L Total Protein 7.8 (6.3-8.2) g/dL Albumin 4.7 (3.5-5.0) g/dL Globulin 3.1 (1.7-4.1) g/dL Albumin/Globulin Ratio 1.5 (1.0-2.8) Lipase 120 (23-300) U/L Point of care testing: Urine Dip Bedside Urine Glucose Negative Bedside Urine Bilirubin - Negative Bedside Urine Ketone - Negative Urine Specific [place] 1.015 Bedside Urine Occult Blood - Negative Bedside Urine pH 6.0 Bedside Urine Protein - Negative Bedside Urine Urobilinogen - Negative Bedside Urine Nitrite - Negative Bedside Urine Leukocytes - Negative Esterase MDM Narrative Medical decision making narrative: Patient 61-year-old female history of small-bowel obstructions and surgeries presenting today with abdominal pain nausea and not passing gas. However she was also very dizzy with history of vertigo. Dizziness and vomiting seem to go together. Every time she sits up moves turns her head she gets very nauseous and vomits. She has no focal deficits NIH is 0. This has happened to her before. Her abdomen is soft nontender nondistended. CT shows constipation but no evidence of obstruction. Possible colitis as well. Blood work has been reviewed overall reassuring She has no leukocytosis or anemia or electrolyte abnormality Liver enzymes slightly elevated AST 72 ALT 79 normal bilirubin and a normal lipase EKG reviewed no ischemia or arrhythmia Rolling down patient was doing well was not having any dizziness. However after ambulation trial she got very dizzy and started vomiting again. I do not think vomiting is related to abdominal pain. There is no evidence of obstruction on CT she does have quite a bit of constipation. I think vomiting is mostly related to the vertigo she was really complaining of the room spinning every time she sits. Patient is given IV fluids and Ativan to help with the dizziness. She previously took meclizine and likely threw it up She really continues to throw up she does not feel like her abdomen is in significant pain. She really wants to just try and sleep. Patient signed out to Dr. Vann. 03/26/2024 Dr. Vann. Patient signed out to myself. History of small-bowel obstruction and prior surgeries presenting with a abdominal nausea and pain as well as some vertigo but has a history of intermittent vertigo. Patient had no acute neurologic changes CT showed no evidence of obstruction but did have some colitis labs are overall appropriate AST ALT are elevated at 72 and 79 but normal bilirubin and lipase. Point of care urine shows no acute change. Patient had fluids, antiemetics, pain medication as well. Spoke with patient she was feeling improved this morning. States she was throwing up a couple hours but would like to return home. Reviewed her findings, she was actually scheduled for EGD and colonoscopy in April with Dr. Carson. Discussed her findings unclear if her vomiting is from her abdomen or her vertigo symptoms. Discussed with patient we will cover with a short course of antibiotic but that there other potential causes such as inflammatory changes autoimmune colonoscopy will be helpful to figure these out. We will also send a script for Zofran. Patient states she has meclizine at home as well. Vitals here are appropriate she is well-appearing on exam requesting to return home. Discussed return precautions all questions answered. Discharge Plan Departure Patient Disposition: Home Clinical Impression: Colitis, Vertigo Instructions: DI for Colitis Activity Restrictions/Additional Instructions: Your workup today did show some colitis/proctitis or inflammation of the distal colon. There has also a large amount of stool in the abdomen. No signs of bowel obstruction. These changes can sometimes come from inflammation, infection versus autoimmune diseases it is good that you follow up with Dr. Carson to have an EGD and colonoscopy for further evaluation in April. You continue to take the Mag citrate drink the rest of the bottle today to see if that helps with your bowel movements. You can continue your home meclizine 25-50 mg every 6 hours for any vertigo symptoms. Take Zofran, 1 tablet every 6 hours as needed for nausea. Take antibiotics until completed. Prescription sent to [facility] in [place]. Please return for fevers, worsening abdominal back or flank pain, persistent vomiting, black or bloody stools, lightheadedness or passing out, any new numbness, tingling or weakness difficulty with speech, movement or other new or concerning changes. Prescriptions: New ondansetron 4 mg tablet,disintegrating 4 mg PO Q6H PRN (Reason: nausea and vomiting) Qty: 10 0RF amoxicillin-pot clavulanate 875-125 mg tablet 1 tab PO BID Qty: 20 0RF No Action multivitamin Capsule 1 cap PO DAILY Qty: 0 vitamin E 100 unit Tablet 1 unit PO DAILY Qty: 0 cholecalciferol (vitamin D3) [Vitamin D3] 50 mcg (2,000 unit) Capsule 50 mcg PO DAILY Qty: 0 anastrozole 1 mg Tablet 1 mg PO DAILY Qty: 90 3RF omeprazole 20 mg capsule,delayed release(DR/EC) 20 mg PO DAILY PRN (Reason: Heartburn) Qty: 90 3RF sodium,potassium,mag sulfates [Suprep Bowel Prep Kit] 17.5-3.13-1.6 gram recon soln See Rx Instructions PO .COMPLEX Qty: 354 0RF Rx Instructions: take as directed by Physician cyanocobalamin (vitamin B-12) 1,000 mcg capsule 1,000 mcg PO DAILY Rx Instructions: unknown dose diphenhydramine HCl [Benadryl Allergy] 25 mg tablet 25 mg PO BEDTIME PRN calcium 600 mg capsule 600 mg PO BID Referrals: Dannie Carson MD [Physician] - Delmis Caldera DO [Primary Care Provider] - Stand Alone Forms: Patient Portal/API/Survey
[2024-03-26] MEDS: MAGNESIUM CITRATE 300 ML SOLUTION PO (04:00)
[2024-03-26] MEDS: MECLIZINE HCL 12.5 MG TABLET 25 MG PO (04:18)
[2024-03-26] MEDS: ONDANSETRON 4 MG/2 ML INJ IV (04:19)
[2024-03-26] MEDS: SODIUM CHLORIDE 0.9% 1,000 ML 1000 ML IV (04:19)
[2024-03-26] MEDS: LORazepam 2 MG/ML INJ 0.5 MG IV (05:16)
[2024-03-26] MEDS: METOCLOPRAMIDE 10 MG/2 ML INJ IV (06:10)
== END 2024-03-26 09:23 | disposition home or self-care (01) ==
PROVIDERS: Emergency Medicine; Emergency Provider Emergency Medicine; Family Provider Family Medicine; PCP Family Medicine
DX: K52.9 Noninfective gastroenteritis and colitis, unspecified (principal); R42 Dizziness and giddiness; Z85.3 Personal history of malignant neoplasm of breast; R11.0 Nausea
CPT/HCPCS: 36415; 74177; 80053; 81003; 83605; 83690; 85025; 93005; 93010; 96361; 96374; 96375; 96376; 99284; 99285; J2060; J2405; J2765; Q9967

== ENCOUNTER 2024-03-30 03:42 | Emergency (ER) | payer MEDICARE, SELFPAY ==
[2020-07-27 13:33] VITALS: BMI 20.1
[2024-03-30 03:50] VITALS: BP 157/74; PULSE 71; RESP 18; TEMP 36.9; O2SAT 100; BMI 21.0
--- NOTE | 2024-03-30 04:10 | ED.HA ---
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 last night she was describes has been pretty intense was all over she rubbed her forehead and it localize more to the left side patient states it has not improved. She states not the worst headache of her life but was intense. She states she does sometimes gets headaches but not usually this severe. Denies any fevers or chills. No cold cough or congestion, no numbness tingling or weakness, no photophobia, no difficulty with speech or movement. She states she felt a little dizzy but has not had any vertigo symptoms. She has had vertigo in the past. She has had nausea but no vomiting. Patient did not take anything for the headache. She did check her blood pressure was in the 130 systolic. She felt quite anxious so she waited until she felt better and then presents to the emergency department. Patient states only daily medication as anastrozole. Has not allergy to aspirin and codeine. No tobacco, occasional alcohol, no recreational drug. Primary care is Dr. Caldera. Related Data Home Medications Medication Instructions Recorded Confirmed cholecalciferol (vitamin D3) 50 50 mcg PO DAILY ##0 12/21/11 03/24/24 mcg (2,000 unit) capsule (Vitamin D3) multivitamin 1 cap PO DAILY ##0 12/21/11 03/24/24 vitamin E 100 unit tablet 1 unit PO DAILY ##0 12/21/11 03/24/24 calcium 600 mg capsule 600 mg PO BID 07/21/21 03/24/24 cyanocobalamin (vitamin B-12) 1,000 mcg PO DAILY 07/21/21 03/24/24 1,000 mcg capsule diphenhydramine HCl 25 mg tablet 25 mg PO BEDTIME PRN 12/07/23 03/24/24 (Benadryl Allergy) Previous Rx's Medication Instructions Recorded anastrozole 1 mg tablet 1 mg PO DAILY #90 tabs 06/26/22 omeprazole 20 mg capsule,delayed 20 mg PO DAILY PRN Heartburn #90 03/05/23 release caps amoxicillin 875 mg-potassium 1 tab PO BID #20 tabs 03/26/24 clavulanate 125 mg tablet ondansetron 4 mg disintegrating 4 mg PO Q6H PRN nausea and 03/26/24 tablet vomiting #10 tabs sodium,potassium,mag sulfates 17.5 See Rx Instructions PO .COMPLEX 03/26/24 gram-3.13 gram-1.6 gram oral soln #354 mL (Suprep Bowel Prep Kit) Allergies Allergy/AdvReac Type Severity Reaction Status Date / Time aspirin [ASPIRIN] AdvReac Mild GI UPSET Verified 03/25/24 20:39 codeine [CODEINE] AdvReac Mild VOMITING Verified 03/25/24 20:39 Review of Systems Review of Systems ROS Unobtainable: All systems reviewed & are unremarkable except as noted in HPI and below Patient History Medical History Constipation GERD (gastroesophageal reflux disease) Anxiety Endometriosis Tubo-ovarian abscess (~2000) Invasive ductal carcinoma of right breast Peptic ulcer Nephrolithiasis Surgical History History of esophagogastroduodenoscopy (EGD) (~03/2009) History of esophagogastroduodenoscopy (EGD) (~05/2007) H/O laparoscopy (~08/2006) History of abdominal supracervical subtotal hysterectomy (~01/2003) History of laparotomy (~2000) Family History Brother Age: 70 High cholesterol Social History marital status: unknown household members: none Smoking Status: Never smoker alcohol intake: current Smoking Status: Never smoker alcohol intake frequency: holidays/special occasions only Exam Narrative Exam Narrative: GEN: well nourished, well appearing female, alert and oriented x 3, patient appears to be in mild distress. HEENT: Atraumatic, pupils are equal round reactive to light, no nystagmus, extraocular movements are intact, nares are clear, TMs are clear with no fluid, there is no conjunctival pallor. Throat is clear without any exudates, erythema, tonsillar enlargement or uvular deviation, no facial droop. HEART: Regular rate and rhythm without murmur, clicks, rubs. No carotid bruits, pulses are equal in upper and lower extremities LUNGS:Lungs clear to auscultation, no wheezes, rales, crackles, chest moves symmetrically ABD:bowel sounds normal, soft, non-tender, no guarding, rebound, rigidity, no masses noted, no hepatosplenomegaly MSCL: Non-tender, no muscle atrophy, muscles strength 5/5 upper and lower extremities, full range of motion, normal gait NEURO:CN 2-12 intact, sensation normal, finger nose finger test normal, heel luu test normal, romberg normal Initial Vital Signs Initial Vital Signs: Vital Signs Temperature 98.4 F 03/30/24 03:50 Pulse Rate 71 03/30/24 03:50 Respiratory Rate 18 03/30/24 03:50 Blood Pressure 157/74 H 03/30/24 03:50 Pulse Oximetry 100 03/30/24 03:50 Oxygen Delivery Method Room Air 03/30/24 03:50 Course Orders Ordered: ED Orders 03/30/24 04:03 Basic Metabolic Panel Stat Complete Blood Count AUTO DIFF Stat 03/30/24 04:38 CT angio head and neck Stat 03/30/24 04:40 CT head/brain wo con Stat Discontinued Medications Acetaminophen (Acetaminophen 325 Mg Tablet) 975 mg PO NOW ONE Stop: 03/30/24 04:39 Last Admin: 03/30/24 05:17 Dose: 975 mg Documented By: NEYDA Sodium Chloride (Normal Saline 0.9%) 1,000 mls @ 1,000 mls/hr IV BOLUS ONE Stop: 03/30/24 05:37 Last Infusion: 03/30/24 05:49 Dose: Infused Documented By: Admin: 03/30/24 04:47 Dose: 1,000 mls/hr Documented By: LEDA Ondansetron HCl (Ondansetron 4 Mg/2 Ml Inj) 4 mg IV NOW ONE Stop: 03/30/24 04:39 Last Admin: 03/30/24 04:47 Dose: 4 mg Documented By: LEDA Vital Signs Vital signs: Vital Signs - 8 hr 03/30/24 03:50 03/30/24 06:33 Temperature 98.4 F Pulse Rate 71 60 Respiratory Rate 18 18 Blood Pressure 157/74 H 132/70 Pulse Oximetry 100 100 Oxygen Delivery Method Room Air Room Air MDM - Headache Lab Data 03/30/24 04:03 03/30/24 04:03 Labs: Lab Results 03/30/24 Range/Units 04:03 WBC 4.7 (4.5-11.0) X10^3/uL RBC 5.18 (4.0-5.2) X10^6/uL Hgb 15.2 (12.0-16.0) g/dL Hct 46.4 H (36-46) % MCV 89.5 (80-100) fL MCH 29.3 (26-34) PG MCHC 32.7 (30-36) % RDW 13.2 (11.6-14.8) % Plt Count 216 (150-400) X10^3/uL Neut % (Auto) 60.6 (50-75) % Lymph % (Auto) 28.6 (25-40) % Adams % (Auto) 8.5 (3-14) % Eos % (Auto) 1.3 L (2-4) % Baso % (Auto) 1.0 (0-2) % Neut # (Auto) 2900 (8147-7767) /uL Lymph # (Auto) 1300 (5393-1882) /uL Adams # (Auto) 400 (0-900) /uL Eos # (Auto) 100 (0-450) /uL Baso # (Auto) 0 (0-100) /uL Sodium 137 (137-145) mmol/L Potassium 4.2 (3.4-5.1) mmol/L Chloride 101 (98-107) mmol/L Carbon Dioxide 26 (22-32) mmol/L BUN 11 (7-17) mg/dL Creatinine 0.58 (0.52-1.04) mg/dL Estimated GFR > 60 (>60) mL/min BUN/Creatinine Ratio 19.0 (6-22) Glucose 113 H (80-110) mg/dL Calcium 9.5 (8.4-10.2) mg/dL Urine Dip Bedside Urine Glucose Negative Bedside Urine Bilirubin - Negative Bedside Urine Ketone - Negative Urine Specific [place] 1.010 Bedside Urine Occult Blood - Negative Bedside Urine pH 6.5 Bedside Urine Protein - Negative Bedside Urine Urobilinogen - Negative Bedside Urine Nitrite - Negative Bedside Urine Leukocytes - Negative Esterase MDM Narrative Medical decision making narrative: 69-year-old female who is here recently for vertigo and abdominal pain had imaging was found to have colitis and was covered with Augmentin. Patient states has been improving has been little constipated but having bowel movements. Last night she developed headache describes it as severe but not the worst headache of her life. No acute neurologic changes no vertigo symptoms. Patient does have a history of breast cancer currently on anastrozole. Head CT shows no acute intracranial findings specifically no hemorrhage or acute territorial infarct. CT head and neck angio, patient has a neck CTA. Labs shows normal white count hemoglobin and platelets. Electrolytes are appropriate creatinine and BUN are appropriate glucose is 113. Fluids, Zofran and Tylenol patient is feeling improved. Patient is felt appropriate for discharge home. Discharge Plan Departure Patient Disposition: Home Clinical Impression: Headache Instructions: DI for Headache Activity Restrictions/Additional Instructions: Follow up for recheck with your physician. You can continue with Tylenol up to a 1000 mg every 6 hours and/or ibuprofen up to 600 mg every 6 hours. Please return for fevers, severe headaches, sudden vision changes, new numbness, tingling or weakness, difficulty with speech or movement persistent vomiting or other new or concerning changes. Prescriptions: No Action multivitamin Capsule 1 cap PO DAILY Qty: 0 vitamin E 100 unit Tablet 1 unit PO DAILY Qty: 0 cholecalciferol (vitamin D3) [Vitamin D3] 50 mcg (2,000 unit) Capsule 50 mcg PO DAILY Qty: 0 anastrozole 1 mg Tablet 1 mg PO DAILY Qty: 90 3RF omeprazole 20 mg capsule,delayed release(DR/EC) 20 mg PO DAILY PRN (Reason: Heartburn) Qty: 90 3RF sodium,potassium,mag sulfates [Suprep Bowel Prep Kit] 17.5-3.13-1.6 gram recon soln See Rx Instructions PO .COMPLEX Qty: 354 0RF Rx Instructions: take as directed by Physician cyanocobalamin (vitamin B-12) 1,000 mcg capsule 1,000 mcg PO DAILY Rx Instructions: unknown dose diphenhydramine HCl [Benadryl Allergy] 25 mg tablet 25 mg PO BEDTIME PRN calcium 600 mg capsule 600 mg PO BID ondansetron 4 mg tablet,disintegrating 4 mg PO Q6H PRN (Reason: nausea and vomiting) Qty: 10 0RF amoxicillin-pot clavulanate 875-125 mg tablet 1 tab PO BID Qty: 20 0RF Referrals: Delmis Caldera DO [Primary Care Provider] - Stand Alone Forms: Patient Portal/API/Survey
--- NOTE | 2024-03-30 04:38 | DI.CT.S_ITS ---
PROCEDURE: CT ANGIO HEAD AND NECK INDICATIONS: Burrell, n/v, dizzy, not vertigo this time. TECHNIQUE: After the administration of intravenous contrast, 1 mm thick sections acquired from the aortic arch through the [place] of [place]. 3-dimensional pjfhkie-tvmdwcalf-vhkxnozipd (MIP) and/or volume rendering reformats were acquired of the central intracranial vasculature and neck separately. For radiation dose reduction, the following was used: automated exposure control, adjustment of mA and/or kV according to patient size. COMPARISON: [facility], MR, MR HEAD/BRAIN WO/W CON, 08/02/2021, 9:46. [facility], CT, CT HEAD/BRAIN WO CON, 03/30/2024, 5:38. FINDINGS: Image quality: Limited by bolus timing, with venous contamination. There is streak artifact seen through the level of the shoulders. BRAIN: CSF spaces: Ventricles are normal in size and shape. Basal cisterns are patent. No extra-axial fluid collections. Brain: No significant abnormality of the brain can be seen. Skull and face: Calvarium and facial bones appear intact, without suspicious lesions. Orbits appear normal. Sinuses: Sinuses and mastoids are clear. HEAD CT ANGIOGRAPHY: Anterior circulation: Intracranial internal carotid arteries are normal in size and flow. The flow within the paired anterior cerebral arteries is normal and symmetric. The flow within the middle cerebral arteries is normal and symmetric. The anterior communicating artery is seen. No aneurysms are seen. Posterior circulation: Visualized portions of the vertebral arteries demonstrate normal caliber, and join to form a normal appearing basilar artery. Flow within the posterior cerebral arteries is normal and symmetric. No aneurysms are seen. NECK CT ANGIOGRAPHY: Carotid system: The great vessels demonstrate a conventional anatomy as they arise from the aortic arch. The origins of the common carotid arteries appear patent. The common carotid arteries demonstrate normal caliber and courses. The bifurcation regions are both widely patent. The internal carotid arteries demonstrate normal calibers and courses. Posterior circulation: The origins of the vertebral arteries both appear widely patent. The more superior extracranial portions of both vertebral arteries also demonstrate normal courses and calibers. They join to form a normal appearing basilar artery. Soft tissues: Visualized neck soft tissues demonstrate no suspicious abnormalities. Bones: No suspicious bony lesions. Visualized cervical spine appears normally aligned. IMPRESSION: No significant intracranial arterial abnormality is seen. No significant abnormality is seen within the arteries of the neck. Note: No significant discrepancy from the preliminary report. Any quantitative measurements of stenosis were performed using NASCET criteria. Dictated by: Jimmy Tidwell M.D. on 03/30/2024 at 8:50 Approved by: Jimmy Tidwell M.D. on 03/30/2024 at 8:55
--- NOTE | 2024-03-30 04:40 | DI.CT.S_ITS ---
PROCEDURE: CT HEAD/BRAIN WO CON INDICATIONS: Burrell, n/v, dizzy, not vertigo this time. TECHNIQUE: Noncontrast 4.5 mm thick angled axial sections acquired from the foramen magnum to the vertex, with coronal and sagittal reformats. For radiation dose reduction, the following was used: automated exposure control, adjustment of mA and/or kV according to patient size. COMPARISON: [facility], CT, CT ANGIO HEAD AND NECK, 03/30/2024, 5:38. [facility], MR, MR HEAD/BRAIN WO/W CON, 08/02/2021, 9:46. FINDINGS: Image quality: Diagnostic. CSF spaces: Basal cisterns are patent. No extra-axial fluid collections. The ventricles are symmetric in size and shape. Brain: No intracranial bleeds or masses. There is cerebral volume loss for age, with resultant ventricular and sulcal prominence. There are periventricular and deep white matter chronic small vessel ischemic changes. There is intracranial internal carotid artery atherosclerosis. Skull and face: Calvarium and visualized facial bones appear intact, without suspicious lesions. Sinuses: Visualized sinuses and mastoids are clear. IMPRESSION: No imaging explanation is found for this patient's presenting symptoms. No acute intracranial pathology. Note: No significant discrepancy from the preliminary report. Dictated by: Jimmy Tidwell M.D. on 03/30/2024 at 8:55 Approved by: Jimmy Tidwell M.D. on 03/30/2024 at 8:56
[2024-03-30] MEDS: ONDANSETRON 4 MG/2 ML INJ IV (04:47)
[2024-03-30] MEDS: SODIUM CHLORIDE 0.9% 1,000 ML 1000 ML IV (04:47)
--- NOTE | 2024-03-30 04:48 | PC.NURSE ---
Pt ambulatory to restroom without difficulty or assistance
[2024-03-30 05:05] LABS: Add Manual Diff / Slide Review NO; Basophils Absolute Auto 0 /uL (0-100); Eosinophils Absolute Auto 100 /uL (0-450); Eosinophils Percent Auto 1.3 % (2-4); Hematocrit 46.4 % (36-46); Hemoglobin 15.2 g/dL (12.0-16.0); Lymphocytes Absolute Auto 1300 /uL (1100-4500); Lymphocytes Percent Auto 28.6 % (25-40); Mean Corpuscular HGB Conc 32.7 % (30-36); Mean Corpuscular Hemoglobin 29.3 PG (26-34); Mean Corpuscular Volume 89.5 fL (80-100); Monocytes Absolute Auto 400 /uL (0-900); Monocytes Percent Auto 8.5 % (3-14); Neutrophils Absolute Auto 2900 /uL (1500-7000); Neutrophils Percent Auto 60.6 % (50-75); Platelet Count 216 X10^3/uL (150-400); Red Blood Cell Count 5.18 X10^6/uL (4.0-5.2); Red Cell Distribution Width 13.2 % (11.6-14.8); White Blood Cell Count 4.7 X10^3/uL (4.5-11.0)
[2024-03-30] MEDS: ACETAMINOPHEN 325 MG TABLET 975 MG PO (05:17)
[2024-03-30 05:24] LABS: Blood Urea Nitrogen 11 mg/dL (7-17); Calcium 9.5 mg/dL (8.4-10.2); Carbon Dioxide 26 mmol/L (22-32); Chloride 101 mmol/L (98-107); Estimated Glomerular Filt Rate > 60 mL/min (>60); Glucose 113 mg/dL (80-110); HEMOLYSIS 29 (0-50); Potassium 4.2 mmol/L (3.4-5.1); Sodium 137 mmol/L (137-145)
[2024-03-30 06:33] VITALS: BP 132/70; PULSE 60; RESP 18; O2SAT 100
== END 2024-03-30 06:36 | disposition home or self-care (01) ==
PROVIDERS: Emergency Provider Emergency Medicine; Family Provider Family Medicine; PCP Family Medicine
DX: R51.9 Headache, unspecified (principal); R42 Dizziness and giddiness; R11.0 Nausea; C50.911 Malignant neoplasm of unspecified site of right female breast
CPT/HCPCS: 36415; 70450; 70496; 70498; 80048; 81003; 85025; 96361; 96374; 99284; J2405

== ENCOUNTER 2024-04-17 07:33 | Day surgery (SDC) | payer MEDICARE, SELFPAY ==
[2020-07-27 13:33] VITALS: BMI 20.1
--- NOTE | 2024-04-17 | PATH_ITS ---
[facility] Accession Number: [id number] No. of containers..06 Tissue . 01 Material submitted: . PART A: gastrointestinal site - ANTRUM PART B: duodenum - DUODENUM PART C: gastrointestinal site - GASTRIC BODY PART D: ileum - TERMINAL ILEUM PART E: colon - PROXIMAL COLON PART F: colon - DISTAL COLON . 01 Diagnosis: A. ANTRUM: Mild chronic gastritis. No Helicobacter pylori organisms identified on immunohistochemical evaluation. No intestinal metaplasia, dysplasia, or malignancy. . B. DUODENUM: Duodenal mucosa with no diagnostic abnormality. Negative for active inflammation, features of sprue, dysplasia, or malignancy. . C. GASTRIC BODY: Gastric mucosa with minimal chronic nonspecific inflammtion. No Helicobacter pylori organisms identified on H/E slide. No intestinal metaplasia, dysplasia, or malignancy. . D. TERMINAL ILEUM Small bowel mucosa with no diagnostic abnormality. Negative for active inflammation, dysplasia, and malignancy. . E. PROXIMAL COLON: Colonic mucosa with no diagnostic abnormality. Negative for active, chronic, and microscopic colitis. Negative for dysplasia and malignancy. . F. DISTAL COLON: Colonic mucosa with no diagnostic abnormality. Negative for active, chronic, and microscopic colitis. Negative for dysplasia and malignancy. [facility] 04/22/2024 1236 Local . 01 Electronically signed: . Hina Gómez MD, Pathologist NPI- [id number] . 01 Gross description: . Part A: ANTRUM: Received in formalin are 3 fragment(s) of lópez, soft tissue measuring 0.3 x 0.2 x 0.2 cm to 0.4 x 0.2 x 0.2 cm submitted entirely in 1 cassette(s) Part B: DUODENUM: Received in formalin are 2 fragment(s) of lópez, soft tissue measuring 0.2 x 0.2 x 0.2 cm to 0.3 x 0.3 x 0.3 cm submitted entirely in 1 cassette(s) Part C: GASTRIC BODY: Received in formalin are 2 fragment(s) of lópez, soft tissue measuring 0.2 x 0.2 x 0.2 cm to 0.3 x 0.3 x 0.2 cm submitted entirely in 1 cassette(s) Part D: TERMINAL ILEUM: Received in formalin are 2 fragment(s) of lópez, soft tissue measuring 0.2 x 0.2 x 0.2 cm to 0.3 x 0.3 x 0.3 cm submitted entirely in 1 cassette(s) Part E: PROXIMAL COLON: Received in formalin are 3 fragment(s) of lópez, soft tissue measuring 0.1 x 0.1 x 0.1 cm to 0.5 x 0.2 x 0.1 cm submitted entirely in 1 cassette(s) Part F: DISTAL COLON: Received in formalin are 2 fragment(s) of lópez, soft tissue measuring 0.2 x 0.2 x 0.2 cm to 0.3 x 0.2 x 0.2 cm submitted entirely in 1 cassette(s) /VICTOR HUGO 04/19/2024 0102 Local . 01 Microscopic: . A. An immunohistochemical stain was performed to evaluate for Helicobacter organisms and is negative. The control stain showed appropriate reactivity. . * This test was developed and the performance characteristics were validated by [employer]. It has not been cleared or approved by the U.S. Food and Drug Administration. . 01 Pathologist provided ICD-10: K29.70 . 01 CPT . 831102, 895100, 919942, 306791, 103845, 937617, [id number] Specimen Comment: A courtesy copy of this report has been sent to [phone] Performed at: [address] [facility], [place], [place] [id number] MD Miguel Angel Regalado MD Phone: [phone]
[2024-04-17 08:01] VITALS: BP 142/78; PULSE 72; RESP 16; TEMP 36.4; O2SAT 99
[2024-04-17] MEDS: LACTATED RINGERS 1,000 ML 42 ML IV (08:22)
--- NOTE | 2024-04-17 08:30 | PM.HP.IH.1 ---
History of Present Illness History of Present Illness Date Patient Seen: 04/17/24 Time Patient Seen: 08:30 Chief complaint: SDC Narrative: Leni is a 69-year-old woman with a change in bowel function and abnormal imaging of the GI tract. See the office note for details. [facility] Medical History Constipation GERD (gastroesophageal reflux disease) Anxiety Endometriosis Tubo-ovarian abscess (~2000) Invasive ductal carcinoma of right breast Peptic ulcer Nephrolithiasis Surgical History History of esophagogastroduodenoscopy (EGD) (~03/2009) History of esophagogastroduodenoscopy (EGD) (~05/2007) H/O laparoscopy (~08/2006) History of abdominal supracervical subtotal hysterectomy (~01/2003) History of laparotomy (~2000) Family History Brother Age: 70 High cholesterol Social History marital status: unknown household members: none Smoking Status: Never smoker alcohol intake: former Meds Home Medications and Allergies Home Medications Medication Instructions Recorded Confirmed Type cholecalciferol (vitamin D3) 50 50 mcg PO DAILY ##0 12/21/11 04/16/24 History mcg (2,000 unit) capsule (Vitamin D3) multivitamin 1 cap PO DAILY ##0 12/21/11 04/16/24 History vitamin E 100 unit tablet 1 unit PO DAILY ##0 12/21/11 04/16/24 History calcium 600 mg capsule 600 mg PO BID 07/21/21 04/17/24 History cyanocobalamin (vitamin B-12) 1,000 mcg PO DAILY 07/21/21 04/16/24 History 1,000 mcg capsule anastrozole 1 mg tablet 1 mg PO DAILY #90 tabs 06/26/22 04/17/24 Rx omeprazole 20 mg capsule,delayed 20 mg PO DAILY PRN Heartburn #90 03/05/23 04/17/24 Rx release caps diphenhydramine HCl 25 mg tablet 25 mg PO BEDTIME PRN Sleep 12/07/23 04/17/24 History (Benadryl Allergy) sodium,potassium,mag sulfates 17.5 See Rx Instructions PO .COMPLEX 03/26/24 04/16/24 Rx gram-3.13 gram-1.6 gram oral soln #354 mL (Suprep Bowel Prep Kit) ondansetron 4 mg disintegrating 4 mg PO Q6H PRN nausea and 04/16/24 04/16/24 Rx tablet vomiting #20 tabs Allergies Allergy/AdvReac Type Severity Reaction Status Date / Time aspirin [ASPIRIN] AdvReac Mild GI UPSET Verified 04/17/24 07:57 codeine [CODEINE] AdvReac Mild VOMITING Verified 04/17/24 07:57 Exam Vital Signs (past 8 hours): - 04/17/24 08:01 Temperature 97.6 F Pulse Rate 72 Respiratory Rate 16 Blood Pressure 142/78 H Pulse Oximetry 99 Oxygen Delivery Method Room Air Oxygen Flow Rate 0 Oxygen Delivery Method Room Air Oxygen Flow Rate 0 Const General: No acute distress Assessment & Plan Assessment and plan (1) Change in bowel function: Status: Acute Plan EGD and colonoscopy Time-Based Coding :: [TOTAL MINUTES] spent with patient and on the chart (including review of chart, obtaining history, exam, reviewing outside data, placing orders, documenting exam and treatment plan, and counseling patient) on [DATE]. PROFEE Physics Professor Document charge(s): No
[2024-04-17 09:07] VITALS: BP 100/47; PULSE 64; RESP 16; TEMP 36.2; O2SAT 100
--- NOTE | 2024-04-17 09:11 | PM.OP.EC ---
Operative Date/Time/Diagnoses Date of procedure: 04/17/24 Time of procedure: 09:11 Pre-op diagnosis: Change in bowel function Post-op diagnosis: same Procedure & Clinicians Study performed: EGD and colonoscopy Same procedure as scheduled: Yes Surgeon: Dannie Carson Procedure Notes Procedure in detail: Surgeon: Dannie Carson MD Anesthesia: Rosalva Che CRNA Procedure in detail: A timeout was performed. A bite blocked was placed and monitors were attached to the patient. The patient was positioned in the left lateral decubitus position. Sedation was administered. Once the patient was sedated the endoscope was inserted through the bite block and passed through the esophagus and stomach and into the duodenum. We took random biopsies of the duodenum with cold forceps. We then withdrew the scope into the stomach. There was mild antritis and we took random biopsies of the antrum with cold forceps. There was mild gastritis in the midportion of the stomach and random biopsies were taken with cold forceps. The endoscope was retroflexed and no other abnormalities were found. The endoscope was straightned and withdrawn into the esophagus. No abnormalities were seen in the esophagus. EGD findings: Mild gastritis from the midbody of the stomach to the antrum Next we repositioned the patient for a colonoscopy. A digital rectal exam was performed and was normal. The colonoscope was inserted and advanced to the cecum. The appendiceal orifice was identified and photographed. The terminal ileum was intubated. No abnormalities were seen and random biopsies were taken with cold forceps. The scope was slowly withdrawn over greater than 6 minutes. No polyps or other lesions were found. We took random biopsies of the proximal colon and distal colon with cold forceps. The scope was retroflexed in the rectum and no other abnormalities were found. Colonoscopy findings: Grossly normal colon Total procedural EBL: 5 mL Scope withdrawal time: 10 minutes Sedation minutes: 22 minutes Post-procedure Recommendations: Colonscopy in 10 years Disposition: PACU
[2024-04-17 09:12] VITALS: BP 113/57; PULSE 73; RESP 18; O2SAT 100
[2024-04-17 09:19] VITALS: BP 147/76; PULSE 66; RESP 14; O2SAT 100
[2024-04-17 09:21] VITALS: BP 133/72; PULSE 64; RESP 18; O2SAT 100
== END 2024-04-17 09:38 | disposition home or self-care (01) ==
PROVIDERS: Family Provider Family Medicine; PCP Family Medicine; Referring Provider Surgery; Visit Provider Surgery
PROC: 0DJ08ZZ Inspection of Upper Intestinal Tract, Via Natural or Artificial Opening Endoscopic (ICD-10-PCS; CPT 45380; principal; 2024-04-17 08:45)
PROC: 0DJD8ZZ Inspection of Lower Intestinal Tract, Via Natural or Artificial Opening Endoscopic (ICD-10-PCS; CPT 45378; 2024-04-17 08:45)
DX: R19.4 Change in bowel habit (principal); K29.50 Unspecified chronic gastritis without bleeding
CPT/HCPCS: 45380; 43239; J2704

== ENCOUNTER → 2024-07-18 07:39 | Outpatient (CLI) | payer MEDICARE, SELFPAY ==
[2020-07-27 13:33] VITALS: BMI 20.1
--- NOTE | 2024-07-18 07:41 | DI.MG.S_ITS ---
MM screening mammo unilat LT: 07/18/2024. BI-RADS: 1 CLINICAL: 69-year old female for left screening mammogram. No Tyrer-Cuzick risk score calculation due to the patient's personal history of breast cancer. Patient reports a history of right breast carcinoma diagnosed at age 65. Status-post right mastectomy. No first-degree family history of breast cancer. Patient was diagnosed within the last 5 years. The patient had a prior right breast biopsy. PRIOR EXAMS 06/18/2023, 06/09/2022, 07/05/2021, 07/06/2020, 06/23/2020, 06/09/2020, 09/20/2019, 05/13/2018, 03/20/2017, 02/08/2016, 07/19/2015, 01/15/2015, 12/28/2014. MAMMOGRAPHY TECHNIQUE: 2D and 3D (tomosynthesis) digital mammographic views obtained, with additional images as needed for full coverage. Current study was also evaluated with a Computer Aided Detection (CAD) system. DENSITY Left: C. The breasts are heterogeneously dense, which may obscure small masses. MAMMOGRAPHY FINDINGS Left: No suspicious mass, asymmetry, microcalcification, or other abnormality seen. IMPRESSION: Left * No evidence of malignancy. RECOMMENDATIONS Left * Annual screening mammography. OVERALL ASSESSMENT CATEGORY BI-RADS-1: Negative. The [employer] recommends annual screening mammography beginning at age 40 for women with average risk of breast cancer. ELECTRONICALLY SIGNED: Jean Heck M.D. on 07/18/2024 at 11:06:13 PM PT Interpreting Station ID: [id number]
== END ==
LOC: MAMMO 07:40
PROVIDERS: Family Provider Family Medicine; PCP Family Medicine; Referring Provider Family Medicine; Visit Provider Family Medicine
DX: Z12.31 Encounter for screening mammogram for malignant neoplasm of breast (principal); Z85.3 Personal history of malignant neoplasm of breast; R92.332 Mammographic heterogeneous density, left breast
CPT/HCPCS: 77063; 77067

== ENCOUNTER → 2024-09-18 15:08 | Outpatient (CLI) | payer MEDICARE, SELFPAY ==
[2020-07-27 13:33] VITALS: BMI 20.1
== END ==
LOC: LAB 15:10
PROVIDERS: Family Provider Family Medicine; PCP Family Medicine; Referring Provider Physician Assistant; Visit Provider Physician Assistant
DX: S30.860A Insect bite (nonvenomous) of lower back and pelvis, initial encounter (principal); W57.XXXA Bitten or stung by nonvenomous insect and other nonvenomous arthropods, initial encounter
CPT/HCPCS: 36415; 86617

== ENCOUNTER → 2024-10-19 09:28 | Outpatient (CLI) | payer MEDICARE, SELFPAY ==
[2020-07-27 13:33] VITALS: BMI 20.1
[2024-10-19 10:20] LABS: Influenza A - CEPHEID Flu A NEGATIVE (NEGATIVE); Influenza B - CEPHEID Flu B NEGATIVE (NEGATIVE)
[2024-10-19 10:22] LABS: COVID-19 CEPHEID 4-PLEX PCR Negative (Negative)
== END ==
PROVIDERS: Family Provider Family Medicine; PCP Family Medicine; Visit Provider Nurse Practitioner Family
DX: R51.9 Headache, unspecified (principal)
CPT/HCPCS: 87637

== ENCOUNTER 2024-11-14 06:53 | Emergency (ER) | payer MEDICARE, SELFPAY ==
[2020-07-27 13:33] VITALS: BMI 20.1
[2024-11-14] VITALS (16 sets, daily range): BP systolic 109–178; BP diastolic 55–85; PULSE 60–65; RESP 10–19; TEMP 36.6; O2SAT 99–100; BMI 21.0
--- NOTE | 2024-11-14 07:37 | EKG_ITS ---
[address] [address] Test Date: 2024-11-14 Pat Name: Leni Lind Department: [facility] Room: Gender: Female Noc Technician: : [id number] Requested By: Order Number: [id number] Reading MD: Anjel Romero Measurements Intervals [place] Rate: 62 P: 74 NV: 150 QRS: 85 QRSD: 82 T: 72 QT: 416 QTc: 422 Interpretive Statements Normal sinus rhythm Electronically Signed On 11-14-2024 18:44:51 PDT by Anjel Romero
--- NOTE | 2024-11-14 07:37 | DI.CT.S_ITS ---
PROCEDURE: CT HEAD/BRAIN WO CON INDICATIONS: lightheaded with elevated BP TECHNIQUE: Noncontrast 4.5 mm thick angled axial sections acquired from the foramen magnum to the vertex, with coronal and sagittal reformats. For radiation dose reduction, the following was used: automated exposure control, adjustment of mA and/or kV according to patient size. COMPARISON: [facility], CT, CT HEAD/BRAIN WO CON, 03/30/2024, 5:38. FINDINGS: Image quality: Diagnostic. CSF spaces: Basal cisterns are patent. No extra-axial fluid collections. Ventricles are normal in size and shape. Brain: No midline shift. No intracranial mass effect or hemorrhage. Joshi- white matter interface is normal. Skull and face: Calvarium and visualized facial bones are intact, without suspicious lesions. Sinuses: Visualized sinuses and mastoids are clear. IMPRESSION: No acute intracranial pathology. Dictated by: Candace Gold M.D. on 11/14/2024 at 10:04 Approved by: Candace Gold M.D. on 11/14/2024 at 10:04
--- NOTE | 2024-11-14 07:39 | ED.GENADULT ---
HPI - General Adult General Chief complaint: Hypertension Stated complaint: High blood pressure, not feeling good Time Seen by Provider: 11/14/24 07:12 Source: patient Mode of arrival: Ambulatory History of Present Illness HPI narrative: 61-year-old female with history of breast cancer, currently falls with oncology and prescribed anastrozole, presents with concerns related to elevated blood pressure as setting of feeling lightheaded this morning. Patient reports woke up around 5:00 a.m. and felt lightheaded when trying to get to the restroom. She also had nausea and upset stomach she attributed to history of peptic ulcer. She was having a hard time having a bowel movement, took some magnesium citrate and returned to bed. Symptoms waxed and waned. Later she checked her blood pressure and was 180s over 70s, this concerned her and so she decided to come to the emergency department. She does not take any medications for high blood pressure. Reports had previously kept a blood pressure journal at home and was told by her PCP she did not need to be on medication although notes it is sometimes high when she goes to her oncologists like 160 systolic. No chest pain no shortness of breath. No recent illness. She is concerned that she is having a heart attack or that she may be dehydrated. She is concerned about the lightheadedness. No vertigo Related Data Home Medications ?Medication ?Instructions ?Recorded ?Confirmed cholecalciferol (vitamin D3) 50 50 mcg PO DAILY ##0 12/21/11 10/19/24 mcg (2,000 unit) capsule (Vitamin D3) multivitamin 1 cap PO DAILY ##0 12/21/11 10/19/24 vitamin E 100 unit tablet 1 unit PO DAILY ##0 12/21/11 10/19/24 calcium 600 mg capsule 600 mg PO BID 07/21/21 10/19/24 cyanocobalamin (vitamin B-12) 1,000 mcg PO DAILY 07/21/21 10/19/24 1,000 mcg capsule diphenhydramine HCl 25 mg tablet 25 mg PO BEDTIME PRN Sleep 12/07/23 10/19/24 (Benadryl Allergy) magnesium PO DAILY 09/18/24 10/19/24 Previous Rx's ?Medication ?Instructions ?Recorded anastrozole 1 mg tablet 1 mg PO DAILY #90 tabs 06/26/22 omeprazole 20 mg capsule,delayed 20 mg PO DAILY PRN Heartburn #90 03/05/23 release caps ondansetron 4 mg disintegrating 4 mg PO Q6H PRN nausea and 04/16/24 tablet vomiting #20 tabs Allergies Allergy/AdvReac Type Severity Reaction Status Date / Time aspirin (ASPIRIN) AdvReac Mild GI UPSET Verified 11/14/24 07:07 codeine (CODEINE) AdvReac Mild VOMITING Verified 11/14/24 07:07 Review of Systems Review of Systems Narrative: Pertinent ROS obtained and negative except as stated in HPI Patient History Medical History (Updated 11/14/24 @ 12:24 by Joana Arzate MD) Constipation GERD (gastroesophageal reflux disease) Anxiety Endometriosis Tubo-ovarian abscess (~2000) Invasive ductal carcinoma of right breast Peptic ulcer Nephrolithiasis Surgical History History of esophagogastroduodenoscopy (EGD) (~03/2009) History of esophagogastroduodenoscopy (EGD) (~05/2007) H/O laparoscopy (~08/2006) History of abdominal supracervical subtotal hysterectomy (~01/2003) History of laparotomy (~2000) Family History Brother Age: 70 High cholesterol Social History marital status: unknown household members: none alcohol intake: former alcohol intake frequency: holidays/special occasions only Exam Initial Vital Signs Initial Vital Signs: Vital Signs Pulse Rate 65 11/14/24 07:03 Respiratory Rate 16 11/14/24 07:03 Pulse Oximetry 100 11/14/24 07:03 Constitutional: Well appearing, no acute distress Head: NCAT. Cardiovascular: RRR, no murmur or rub Pulmonary: CTA bilaterally, no respiratory distress Abdominal: soft, non-tender Extremities: No LE edema Skin: warm and dry, no diaphoresis Neurological: Alert and oriented x3. Follows commands. Normal language and cognition. Normal coordination. Pupils equal round reactive. No facial droop. V1-V3 sensation intact bilaterally. Equal shoulder shrug. Tongue protrudes midline. 5/5 strength upper and lower extremities. Normal rhcmrf-xw-tdhy and alternating hand movements. Normal rzoy-so-afhg. No truncal ataxia when sitting upright but does become more ?lightheaded. ? no nystagmus noted. Extraocular movements intact. All marks intact Course Orders Ordered: Discontinued Medications Al Hydrox/Mg Hydrox/Simethicone (Mag Hydrox/Alum/Simeth 30 Ml Udc) 30 ml PO NOW ONE Stop: 11/14/24 07:38 Last Admin: 11/14/24 07:45 Dose: 30 ml Documented By: PENNY Sodium Chloride (Normal Saline 0.9%) 1,000 mls @ 1,000 mls/hr IV BOLUS ONE Stop: 11/14/24 08:36 Last Infusion: 11/14/24 09:26 Dose: Infused Documented By: Admin: 11/14/24 07:48 Dose: 1,000 mls/hr Documented By: PENNY Sodium Chloride (Normal Saline 0.9%) 1,000 mls @ 1,000 mls/hr IV BOLUS ONE Stop: 11/14/24 11:14 Last Infusion: 11/14/24 12:02 Dose: Infused Documented By: Admin: 11/14/24 10:33 Dose: 1,000 mls/hr Documented By: BUD Ondansetron HCl (Ondansetron 4 Mg/2 Ml Inj) 4 mg IV NOW ONE Stop: 11/14/24 07:38 Last Admin: 11/14/24 07:46 Dose: 4 mg Documented By: PENNY Pantoprazole Sodium (Pantoprazole 40 Mg Vial) 40 mg IV NOW ONE Stop: 11/14/24 07:38 Last Admin: 11/14/24 07:45 Dose: 40 mg Documented By: PENNY Vital Signs Vital signs: Vital Signs - 8 hr 11/14/24 07:03 11/14/24 07:07 11/14/24 07:30 Temperature 97.8 F Pulse Rate 65 64 65 Respiratory Rate 16 17 Blood Pressure 178/85 H Pulse Oximetry 100 100 100 Oxygen Delivery Method Room Air 11/14/24 07:30 11/14/24 08:24 11/14/24 08:25 Temperature Pulse Rate 64 Respiratory Rate 16 Blood Pressure 168/77 H 171/73 H Pulse Oximetry 100 Oxygen Delivery Method 11/14/24 08:25 11/14/24 08:30 11/14/24 08:30 Temperature Pulse Rate 63 60 Respiratory Rate 15 10 L Blood Pressure 153/65 H Pulse Oximetry 99 100 Oxygen Delivery Method 11/14/24 09:00 11/14/24 09:00 11/14/24 09:30 Temperature Pulse Rate 60 61 Respiratory Rate 13 Blood Pressure 150/72 H Pulse Oximetry 100 99 Oxygen Delivery Method 11/14/24 09:30 Temperature Pulse Rate Respiratory Rate Blood Pressure 118/59 L Pulse Oximetry Oxygen Delivery Method Medical Decision Making Lab Data 11/14/24 07:50 11/14/24 07:50 Labs: Lab Results 11/14/24 11/14/24 Range/Units 07:50 08:25 WBC 4.9 (4.5-11.0) X10^3/uL RBC 4.84 (4.0-5.2) X10^6/uL Hgb 14.3 (12.0-16.0) g/dL Hct 43.3 (36-46) % MCV 89.4 (80-100) fL MCH 29.5 (26-34) PG MCHC 32.9 (30-36) % RDW 14.0 (11.6-14.8) % Plt Count 206 (150-400) X10^3/uL Neut % (Auto) 70.9 (50-75) % Lymph % (Auto) 20.4 L (25-40) % [place] % (Auto) 6.0 (3-14) % Eos % (Auto) 1.4 L (2-4) % Baso % (Auto) 1.3 (0-2) % Neut # (Auto) 3500 (7328-6279) /uL Lymph # (Auto) 1000 L (6798-5191) /uL [place] # (Auto) 300 (0-900) /uL Eos # (Auto) 100 (0-450) /uL Baso # (Auto) 100 (0-100) /uL Sodium 133 L (137-145) mmol/L Potassium 4.0 (3.4-5.1) mmol/L Chloride 100 (98-107) mmol/L Carbon Dioxide 23 (22-32) mmol/L BUN 14 (7-17) mg/dL Creatinine 0.55 (0.52-1.04) mg/dL Estimated GFR > 60 (>60) mL/min BUN/Creatinine Ratio 25.5 H (6-22) Glucose 113 H (70-99) mg/dL Calcium 8.8 (8.4-10.2) mg/dL Total Bilirubin 0.9 (0.2-1.3) mg/dL AST 49 H (14-36) IU/L ALT 30 (<35) IU/L Alkaline Phosphatase 76 (38-126) U/L Troponin I < 0.012 (0.01-0.034) ng/mL Total Protein 8.2 (6.3-8.2) g/dL Albumin 4.9 (3.5-5.0) g/dL Globulin 3.3 (1.7-4.1) g/dL Albumin/Globulin Ratio 1.5 (1.0-2.8) Lipase 93 (23-300) U/L Urine Color Yellow Urine Appearance Clear Urine pH 7.0 (4.5-8.0) Ur Specific [place] 1.015 (1.000-1.035) Urine Protein Negative (Negative) Urine Glucose (UA) Negative (Negative) g/dL Urine Ketones Negative (NEGATIVE) Urine Occult Blood Negative (Negative) Urine Nitrate Negative (Negative) Urine Bilirubin Negative (NEGATIVE) Urine Urobilinogen 0.2 (0.2) E.U./dL Ur Leukocyte Esterase Negative (NEGATIVE) Urine RBC None seen (0-5/HPF) Urine WBC None seen (0-5/HPF) Ur Squamous Epith Cells None seen (0-5/HPF) Urine Bacteria None seen (None) Ur Culture Indicated? Cult not indicated Vol Urine Centrifuged 10ml (spun) MDM Narrative Medical decision making narrative: This is a 69-year-old female with hx of breast cancer being treated with anastrozole here with lightheadedness, difficulty walking due to lightheadedness. No vertigo. No vision or speech disturbance, focal weakness. She had some nausea and upper abdominal discomfort this morning that she attributed to history of peptic ulcer. She is currently taking omeprazole needed. Additionally patient reports some issues with constipation, took magnesium citrate this morning and had a loose bowel movement prior to coming. Currently patient feels a little bit nauseous and lightheaded. This is exacerbated by sitting upright in bed but I do not note any disturbances in coordination or ataxia. There is no nystagmus noted. Cranial nerves are grossly intact. Given patient's report of difficulty with ambulation I have considered posterior stroke syndrome although clinically exam is less consistent with this. We will send for CT CTA to further evaluate. I had also considered hypertensive urgency, electrolyte or metabolic derangement, dehydration, peptic ulcer, pancreatitis, gastritis, biliary etiology such as colic although abdominal exam is benign at this time. Plan is to give IV fluids, Zofran, a GI cocktail including PPI, send for advanced imaging of the head EKGs 0810: Normal sinus rhythm rate of 62, normal NV 150, QRS normal 82, QTC normal 422, normal axis. No ST segment elevation or depression. T-wave inversion V1 V2, notched P waves noted in the inferior leads On re-evaluation at 10:15 a.m. the patient is resting comfortably in bed. Her blood pressure has improved to the 130 systolic. She is feeling better after IV fluids and requesting another liter. On re-evaluation at 12:20 p.m. the patient is resting comfortably in bed. She feels well while resting. She ambulates in the emergency department with a steady gait. She does endorse a little bit of lightheadedness left over with changes in position such as standing to walk. Clarified with her again that she is not experiencing vertigo or double vision. I do not think this is customer account representative of a posterior stroke syndrome given the paroxysmal nature of symptoms and normal exam and ability to ambulate Given her improvement I did ask the patient to monitor symptoms at home the next couple of days. We discussed signs symptoms of stroke, return precautions. She is instructed to keep a blood pressure log and follow up with your family doctor for further care Discharge Plan Departure Patient Disposition: Home Clinical Impression: Episodic lightheadedness Instructions: DI for High Blood Pressure Activity Restrictions/Additional Instructions: Your test today were overall reassuring including CT and CT angiogram of your head and neck. Laboratories were stable. No evidence of infection. I am glad that you are feeling better after IV fluids. No definite cause of your symptoms is apparent today. I would like you to monitor your symptoms closely at home and follow up with your family doctor sometime next week for recheck. Return to the emergency department for persistent lightheadedness or new symptoms such as spinning sensation, vomiting, unable to ambulate due to unsteadiness, double vision, changes in speech or vision, weakness on 1 side of your body Prescriptions: No Action multivitamin Capsule 1 cap PO DAILY Qty: 0 vitamin E 100 unit Tablet 1 unit PO DAILY Qty: 0 cholecalciferol (vitamin D3) [Vitamin D3] 50 mcg (2,000 unit) Capsule 50 mcg PO DAILY Qty: 0 anastrozole 1 mg Tablet 1 mg PO DAILY Qty: 90 3RF omeprazole 20 mg capsule,delayed release(DR/EC) 20 mg PO DAILY PRN (Reason: Heartburn) Qty: 90 3RF ondansetron 4 mg tablet,disintegrating 4 mg PO Q6H PRN (Reason: nausea and vomiting) Qty: 20 1RF cyanocobalamin (vitamin B-12) 1,000 mcg capsule 1,000 mcg PO DAILY Rx Instructions: unknown dose diphenhydramine HCl [Benadryl Allergy] 25 mg tablet 25 mg PO BEDTIME PRN (Reason: Sleep) magnesium PO DAILY calcium 600 mg capsule 600 mg PO BID Referrals: Delmis Caldera DO [Primary Care Provider, Medical] Stand Alone Forms: Patient Portal/API
--- NOTE | 2024-11-14 07:41 | DI.CT.S_ITS ---
PROCEDURE: CT ANGIO HEAD AND NECK INDICATIONS: lightheaded, high blood pressure TECHNIQUE: After the administration of intravenous contrast, 1 mm thick sections acquired from the aortic arch through the [place] of [place]. 3-dimensional dfsgtlq-fkodqeusk-pgnefiuwvs (MIP) and/or volume rendering reformats were acquired of the central intracranial vasculature and neck separately. For radiation dose reduction, the following was used: automated exposure control, adjustment of mA and/or kV according to patient size. COMPARISON: [facility], CT, CT ANGIO HEAD AND NECK, 03/30/2024, 5:38. [facility], CT, CT HEAD/BRAIN WO CON, 11/14/2024, 8:16. FINDINGS: Image quality: Diagnostic. Cerebral CT Angiogram: Internal carotid arteries: No acute findings. Intracranial ICA are patent with no significant stenosis. No occlusion. No aneurysm. Anterior cerebral arteries: Unremarkable. No significant stenosis. No occlusion. No aneurysm. Middle cerebral arteries: Unremarkable. No significant stenosis. No occlusion. No aneurysm. Posterior cerebral arteries: Unremarkable. No significant stenosis. No occlusion. No aneurysm. Basilar artery: Unremarkable. No significant stenosis. No occlusion. No aneurysm. Vertebral arteries: Unremarkable as visualized. Dural venous sinuses: Unremarkable given phase of enhancement. Other: Arterial phase appearance of the brain parenchyma is unremarkable. Neck CT Angiogram: Internal carotid arteries: Unremarkable. No significant stenosis. No dissection or occlusion. Common carotid arteries: Unremarkable. No significant stenosis. No dissection or occlusion. External carotid arteries: Unremarkable. No occlusion. Vertebral arteries: Unremarkable. No significant stenosis. No dissection or occlusion. Aortic Arch and Mediastinum: Partially visualized aortic arch unremarkable without evidence of aneurysm. Origins of the great vessels unremarkable. Other: Arterial phase soft tissues of the neck and chest are unremarkable. IMPRESSION: No significant intracranial arterial abnormality is seen. No significant abnormality is seen within the arteries of the neck. Any quantitative measurements of stenosis were performed using NASCET criteria. Dictated by: Candace Gold M.D. on 11/14/2024 at 10:01 Approved by: Candace Gold M.D. on 11/14/2024 at 10:04
[2024-11-14] MEDS: PANTOPRAZOLE 40 MG VIAL IV (07:45)
[2024-11-14] MEDS: MAG HYDROX/ALUM/SIMETH 30 ML UDC PO (07:45)
[2024-11-14] MEDS: ONDANSETRON 4 MG/2 ML INJ IV (07:46)
[2024-11-14] MEDS: SODIUM CHLORIDE 0.9% 1,000 ML 1000 ML IV ×2 (07:48→10:33)
[2024-11-14 08:04] LABS: Add Manual Diff / Slide Review NO; Hematocrit 43.3 % (36-46); Hemoglobin 14.3 g/dL (12.0-16.0); Lymphocytes Absolute Auto 1000 /uL (1100-4500); Mean Corpuscular HGB Conc 32.9 % (30-36); Mean Corpuscular Hemoglobin 29.5 PG (26-34); Mean Corpuscular Volume 89.4 fL (80-100); Platelet Count 206 X10^3/uL (150-400)
[2024-11-14 08:19] LABS: Alanine Aminotransferase 30 IU/L (<35); Albumin 4.9 g/dL (3.5-5.0); Albumin Globulin Ratio 1.5 (1.0-2.8); Alkaline Phosphatase 76 U/L (38-126); Blood Urea Nitrogen 14 mg/dL (7-17); Calcium 8.8 mg/dL (8.4-10.2); Carbon Dioxide 23 mmol/L (22-32); Chloride 100 mmol/L (98-107); Estimated Glomerular Filt Rate > 60 mL/min (>60); Globulin 3.3 g/dL (1.7-4.1); Glucose 113 mg/dL (70-99); HEMOLYSIS 24 (0-50); Lipase 93 U/L (23-300); Potassium 4.0 mmol/L (3.4-5.1); Sodium 133 mmol/L (137-145); Total Protein 8.2 g/dL (6.3-8.2)
[2024-11-14 08:30] LABS: Troponin I < 0.012 ng/mL (0.01-0.034)
[2024-11-14 08:30] LABS: Appearance Urine UA CLEAR; Bilirubin Urine UA NEGATIVE (NEGATIVE); Color Urine UA YELLOW; Glucose Urine UA NEGATIVE (Negative); Ketones Urine UA NEGATIVE (NEGATIVE); Leukocyte Esterase Urine UA NEGATIVE (NEGATIVE); Nitrite Urine UA NEGATIVE (Negative); Occult Blood Urine UA NEGATIVE (Negative); Protein Urine UA NEGATIVE (Negative); Specific Gravity Urine UA 1.015 (1.000-1.035); Urobilinogen Urine UA 0.2 E.U./dL (0.2)
[2024-11-14 08:31] LABS: pH Urine UA 7.0 (4.5-8.0)
[2024-11-14 08:32] LABS: Culture Indicated Urine Cult Not Indicated
== END 2024-11-14 12:58 | disposition home or self-care (01) ==
PROVIDERS: Emergency Provider Student in an Organized Health Care Education/Training Program; Family Provider Family Medicine; PCP Family Medicine
DX: R42 Dizziness and giddiness (principal); I10 Essential (primary) hypertension
CPT/HCPCS: 36415; 70450; 70496; 70498; 80053; 81001; 83690; 84484; 85025; 93005; 96361; 96374; 96375; 99284; J2405; J2470; Q9967

== ENCOUNTER → 2024-12-17 07:17 | Outpatient (CLI) | payer MEDICARE, SELFPAY ==
[2020-07-27 13:33] VITALS: BMI 20.1
[2024-12-17 08:27] LABS: HEMOLYSIS < 15 (0-50); Iron 95 ug/dL (37-170)
[2024-12-17 08:32] LABS: Alanine Aminotransferase 30 IU/L (<35); Albumin 4.5 g/dL (3.5-5.0); Albumin Globulin Ratio 1.5 (1.0-2.8); Alkaline Phosphatase 71 U/L (38-126); Blood Urea Nitrogen 15 mg/dL (7-17); Calcium 9.1 mg/dL (8.4-10.2); Carbon Dioxide 28 mmol/L (22-32); Chloride 100 mmol/L (98-107); Cholesterol 215 mg/dL (140-199); Estimated Glomerular Filt Rate > 60 mL/min (>60); Globulin 3.0 g/dL (1.7-4.1); Glucose 91 mg/dL (70-99); HDL Cholesterol 106 mg/dL (40-60); HEMOLYSIS < 15 (0-50); Potassium 4.2 mmol/L (3.4-5.1); Sodium 137 mmol/L (137-145); Total Protein 7.5 g/dL (6.3-8.2); Triglycerides 109 mg/dL (35-150)
[2024-12-17 08:41] LABS: Percent Iron Saturation 22 % (15-50); Total Iron Binding Capacity 431 ug/dL (265-497); Transferrin 382 mg/dL (206-381)
[2024-12-17 08:46] LABS: Free T3, Triiodothyronine Free 3.85 pg/mL (2.77-5.27)
[2024-12-17 09:00] LABS: TSH w/ Reflex to FT4 1.91 uIU/mL (0.47-4.68)
[2024-12-17 09:05] LABS: Ferritin 12 ng/mL (11-264)
[2024-12-18 07:09] LABS: CRP, High Sensitivity 0.95 mg/L (0.00-3.00)
== END ==
PROVIDERS: Family Provider Family Medicine; PCP Family Medicine; Referring Provider Family Medicine; Visit Provider Family Medicine
DX: Z00.00 Encounter for general adult medical examination without abnormal findings (principal); D50.9 Iron deficiency anemia, unspecified; E78.00 Pure hypercholesterolemia, unspecified; E04.1 Nontoxic single thyroid nodule; M12.9 Arthropathy, unspecified
CPT/HCPCS: 36415; 80053; 80061; 82728; 83540; 83550; 84443; 84481; 86140

== ENCOUNTER → 2024-12-18 07:49 | Outpatient (CLI) | payer MEDICARE, SELFPAY ==
[2020-07-27 13:33] VITALS: BMI 20.1
--- NOTE | 2024-12-18 07:50 | DI.US.S_ITS ---
PROCEDURE: US THYROID
== END ==
LOC: US 07:50
PROVIDERS: Family Provider Family Medicine; PCP Family Medicine; Referring Provider Family Medicine; Visit Provider Family Medicine
DX: E04.2 Nontoxic multinodular goiter (principal)
CPT/HCPCS: 76536

== ENCOUNTER → 2025-01-20 07:21 | Outpatient (CLI) | payer MEDICARE, SELFPAY ==
[2020-07-27 13:33] VITALS: BMI 20.1
[2025-01-20 07:51] LABS: Add Manual Diff / Slide Review NO; Hematocrit 40.3 % (36-46); Hemoglobin 13.7 g/dL (12.0-16.0); Lymphocytes Absolute Auto 1100 /uL (1100-4500); Mean Corpuscular HGB Conc 33.8 % (30-36); Mean Corpuscular Hemoglobin 29.9 PG (26-34); Mean Corpuscular Volume 88.4 fL (80-100); Platelet Count 203 X10^3/uL (150-400)
[2025-01-20 08:15] LABS: Alanine Aminotransferase 29 IU/L (<35); Albumin 4.5 g/dL (3.5-5.0); Albumin Globulin Ratio 1.6 (1.0-2.8); Alkaline Phosphatase 71 U/L (38-126); Blood Urea Nitrogen 14 mg/dL (7-17); Calcium 9.0 mg/dL (8.4-10.2); Carbon Dioxide 27 mmol/L (22-32); Chloride 103 mmol/L (98-107); Estimated Glomerular Filt Rate > 60 mL/min (>60); Globulin 2.9 g/dL (1.7-4.1); Glucose 99 mg/dL (70-99); HEMOLYSIS < 15 (0-50); Potassium 3.9 mmol/L (3.4-5.1); Sodium 138 mmol/L (137-145); Total Protein 7.4 g/dL (6.3-8.2)
== END ==
PROVIDERS: Family Provider Family Medicine; PCP Family Medicine; Referring Provider Family Medicine; Visit Provider Internal Medicine Hematology & Oncology
DX: C50.911 Malignant neoplasm of unspecified site of right female breast (principal)
CPT/HCPCS: 36415; 80053; 85025